=== PATIENT | female | born 1945 | race Caucasian/White ===

== ENCOUNTER 2016-10-18 08:49 | Emergency (ER) | payer OTHER ==
[~2016-10-18] VITALS: Ht 165.1 cm; Wt 65.0 kg
[~2016-10-18 08:49] MED LIST: ASPI81TA82 PO; HYZA100T4 PO
[2016-10-18 09:22] VITALS: BP 178/76; PULSE 94; RESP 20; O2SAT 97
--- NOTE | 2016-10-18 10:24 | PD ---
HPI Chief Complaint: Headache Time Seen by Provider: 10:11 Travel History International Travel<30 days: No Contact w/Intl Traveler<30days: No Traveled to known affect area: No History of Present Illness HPI This patient complains of headache. Started in the top of her neck and spread up to the head. This started last night. Took some Motrin and went to bed but still having pain today. There was no thunderclap onset. The headache has somewhat improved and does not severe at this time. She has no neurologic deficit or complaints. She felt like her face was swollen today. No fever. No head injury. She takes no blood thinners. Duration one day. Has history of uterine cancer but completed chemotherapy 7 months ago and is now in remission. PFSH Past Medical History Cancer: Yes (uterine ca ) Cardiovascular Problems: Yes (hx mitral valve regurgitation ) Diabetes: No Endocrine: No Genitourinary: No Hepatitis: No Hiatal Hernia: No Immune Disorder: No Musculoskeletal: No Neurologic: No Psychiatric: No Reproductive: Yes Respiratory: No Thyroid Disease: No Past Surgical History Abdominal Surgery: No AICD: No Body Medical Devices: l wrist plates Cardiac Surgery: No Ear Surgery: No Eye Surgery: No Genitourinary Surgery: No Gynecologic Surgery: Yes (sep 07) Joint Replacement: No Oral Surgery: No Pacemaker: No Thoracic Surgery: No Social History Alcohol Use: No Tobacco Use: No Substance Use: No Allergies-Medications (Allergen,Severity, Reaction): Coded Allergies: No Known Allergies (Verified , 10/18/16) Reported Meds & Prescriptions Reported Meds & Active Scripts Active Reported Calcium + D + K (Calcium-Vitamins D & K) 750-500-40 Mg-Unit-Mcg Tab 1 Tab PO TID Vitamin B Complex (B-Complex Vitamins) 1 Tab 1 Tab PO DAILY Hyzaar (Losartan-Hydrochlorothiazide) 50-12.5 Mg Tab 1 Tab PO DAILY Review of Systems General / Constitutional: No: Fever Eyes: No: Visual changes HENT: Positive: Headaches, Neck Pain Cardiovascular: No: Chest Pain or Discomfort Respiratory: No: Shortness of Breath Gastrointestinal: No: Abdominal Pain Genitourinary: No: Dysuria Musculoskeletal: No: Pain Skin: No Rash Neurologic: Positive: Headache, No: Weakness Psychiatric: No: Depression Endocrine: No: Polydipsia Hematologic/Lymphatic: No: Easy Bruising Physical Exam Narrative GENERAL: Well-nourished, well-developed patient in no apparent distress. SKIN: Warm and dry. HEAD: Atraumatic. Normocephalic. EYES: Pupils equal and round. No scleral icterus. No injection or drainage. ENT: No nasal bleeding or discharge. Mucous membranes pink and moist. Throat clear NECK: Trachea midline. No JVD. No midline tenderness. No objective swelling. No meningeal signs. CARDIOVASCULAR: Regular rate and rhythm. No murmur appreciated. RESPIRATORY: No accessory muscle use. Clear to auscultation. Breath sounds equal bilaterally. GASTROINTESTINAL: Abdomen soft, non-tender, nondistended. Hepatic and splenic margins not palpable. MUSCULOSKELETAL: No obvious deformities. No clubbing. No cyanosis. No edema. NEUROLOGICAL: Awake and alert. No obvious cranial nerve deficits. Motor grossly within normal limits. Normal speech. PSYCHIATRIC: Appropriate mood and affect; insight and judgment normal. Data Data Last Documented VS Vital Signs Date Time Temp Pulse Resp B/P Pulse Ox O2 Delivery O2 Flow Rate FiO2 10/18/16 11:13 97.9 82 15 154/[address] Brain W/O Iv Contrast(Rout) (10/18/16 ) [facility] Medical Decision Making Medical Screen Exam Complete: Yes Emergency Medical Condition: Yes Medical Record Reviewed: Yes Differential Diagnosis Differential diagnosis includes migraine, tension headache, cluster headache, meningitis, uterine cancer metastasis Narrative Course I have reviewed the patient's electronic medical record. Patient is neurologically intact. She has an atypical headache with history of uterine cancer so I ordered brain CT No meningeal signs Presentation not consistent with subarachnoid hemorrhage or stroke Brain CT is normal I don't see any real objective findings of anything going on here. Stable for outpatient follow-up. Diagnosis Primary Impression: Headache Qualified Code: R51 - Acute nonintractable headache, unspecified headache type Additional Instructions: The patient was advised to follow up with their physician and return if they worsen. Med/Other Pt SpecificInfo: Other Disposition: 01 DISCHARGE HOME Condition: Stable Jorge Ornelas MD Oct 18, 2016 10:24
--- NOTE | 2016-10-18 10:55 | RADRPT ---
EXAM DATE/TIME: 10/18/2016 10:35 [facility] COMPARISON: No previous studies available for comparison. INDICATIONS : Cephalgia radiating to neck. RADIATION DOSE: 56.35 CTDIvol (mGy) MEDICAL HISTORY : Cardiovascular disease. Hypertension. Uterine cancer. SURGICAL HISTORY : None. ENCOUNTER: Initial ACUITY: 1 day PAIN SCALE: 6/10 LOCATION: cranial TECHNIQUE: Multiple contiguous axial images were obtained of the head. Using automated exposure control and adj ustment of the mA and/or kV according to patient size, radiation dose was kept as low as reasonably a chievable to obtain optimal diagnostic quality images. FINDINGS: CEREBRUM: The ventricles are normal for age. No evidence of midline shift, mass lesion, hemorrhage or acute in farction. No extra-axial fluid collections are seen. POSTERIOR FOSSA: The cerebellum and brainstem are intact. The 4th ventricle is midline. The cerebellopontine angle i s unremarkable. EXTRACRANIAL: There are multiple circumscribed scalp mass is identified, mostly posterior and somewhat dense internet marketing consultant al calcification. These are presumably benign cutaneous lesions however correlation would be recommen ded. SKULL: The calvaria is intact. No evidence of skull fracture. CONCLUSION: No acute intracranial findings. Cosmo Burkett MD on October 18, 2016 at 10:51 Board Certified Radiologist. This report was verified electronically.
[2016-10-18] MEDS ORDERED: VITATAB11 PO (11:12)
[2016-10-18] MEDS ORDERED: CALC750T PO (11:12)
[2016-10-18] MEDS ORDERED: HYZA50TA2 PO (11:12)
[2016-10-18 11:13] VITALS: BP 154/70; PULSE 82; RESP 15; TEMP 97.9; O2SAT 95
[2016-10-18 12:00] VITALS: BP 141/66; PULSE 78; RESP 24; O2SAT 94
== END 2016-10-18 14:02 | disposition home or self-care (01) ==
LOC: NEPC 08:49
DX: R51 Headache (principal)
CPT/HCPCS: 70450

== ENCOUNTER 2016-10-19 07:28 | Observation (INO) | payer OTHER ==
[2016-10-19] VITALS (10 sets, daily range): BP systolic 114–171; BP diastolic 59–75; PULSE 85–102; RESP 14–20; TEMP 96–98.3; O2SAT 94–99
[~2016-10-19] VITALS: Ht 152.4 cm; Wt 65.0 kg
[~2016-10-19 07:28] MED LIST changes: -ASPI81TA82 PO; +CALC750T PO; -HYZA100T4 PO; +HYZA50TA2 PO; +VITATAB11 PO
[2016-10-19 08:10] LABS: AUTOMATED NEUTROPHIL # 7.7 TH/MM3 (1.8-7.7); BASOPHIL % 0.3 % (0.0-2.0); EOSINOPHIL # 0.1 TH/MM3 (0-0.4); EOSINOPHIL % 0.9 % (0.0-4.0); HEMATOCRIT 33.9 % (35.0-46.0); LYMPH % 27.3 % (9.0-44.0); LYMPHOCYTE # 3.3 TH/MM3 (1.0-4.8); MEAN CELL VOLUME 71.5 FL (80.0-100.0); MEAN CORPUSCULAR HEMOGLOBIN 22.8 PG (27.0-34.0); MEAN CORPUSCULAR HGB CONC 31.9 % (32.0-36.0); MONO % 7.2 % (0.0-8.0); NEUT % 64.3 % (16.0-70.0); PLATELET COUNT 277 TH/MM3 (150-450); RED BLOOD COUNT 4.74 MIL/MM3 (4.00-5.30); RED CELL DISTRIBUTION WIDTH 14.8 % (11.6-17.2)
[2016-10-19 08:16] LABS: HEMO FLAGS AUTO DIFF
[2016-10-19 08:34] LABS: POTASSIUM 3.9 MEQ/L (3.5-5.1)
[2016-10-19 09:08] LABS: OVALOCYTES 1+ (NORMAL); SCAN/DIFF AUTO DIFF CONFIRMED; TARGET CELLS 1+ (NORMAL)
--- NOTE | 2016-10-19 09:13 | RADRPT ---
EXAM DATE/TIME: 10/19/2016 09:17 [facility] COMPARISON: No previous studies available for comparison. INDICATIONS : Difficulty swallowing and neck swelling. MEDICAL HISTORY : Uterine cancer. SURGICAL HISTORY : Infusaport. ENCOUNTER: Initial ACUITY: 2 days PAIN SCORE: 7/10 LOCATION: Bilateral chest FINDINGS: [id number] is in good position. The lungs are clear. The heart and pulmonary vascularity are norm al. The portion of the bony skeleton visualized is unremarkable. CONCLUSION: Negative chest for acute disease. Donald Sherman MD FACR on October 19, 2016 at 9:11 Board Certified Radiologist. This report was verified electronically.
[2016-10-19] MEDS ORDERED: methylPREDNISolone SOD SUCC 125 MG/2 ML VIAL IV PUSH ONE (09:45)
[2016-10-19] MEDS ORDERED: diphenhydrAMINE HCL 50 MG/ML VIAL IV PUSH ONE (09:45)
--- NOTE | 2016-10-19 09:51 | PD ---
HPI Chief Complaint: Respiratory Symptoms Time Seen by Provider: 09:27 Travel History International Travel<30 days: No Contact w/Intl Traveler<30days: No Traveled to known affect area: No History of Present Illness HPI The patient is a 71-year-old female who presents to the emergency department for neck swelling and periorbital edema. The patient states her symptoms started several days ago with a sore throat and then neck swelling. The patient now complains of mild difficulty swallowing as well as swelling around the eyes bilaterally. The patient denies any swelling of the hands or feet. The patient states she was evaluated in the emergency department yesterday and had a CT the brain that was negative. She does have a history of uterine cancer and was treated by Dr. Seals, underwent chemotherapy, currently states she is in remission. She denies any history of lung metastasis or known Pancoast tumors. The patient denies any fever, chills, or sweats. She denies starting any new medications and denies any ingestion of any new foods. She denies any known history of angioedema. She does note a dry nonproductive cough secondary to the pain in the posterior aspect of her throat, but denies any significant shortness of breath. She denies any, chest pain, nausea, vomiting, or abdominal pain. PFSH Past Medical History Cancer: Yes (uterine ca ) Cardiovascular Problems: Yes (hx mitral valve regurgitation ) Diabetes: No Diminished Hearing: No Endocrine: No Genitourinary: No Hepatitis: No Hiatal Hernia: No Hypertension: Yes Immune Disorder: No Musculoskeletal: No Neurologic: No Psychiatric: No Reproductive: Yes Respiratory: No Thyroid Disease: No Influenza Vaccination: No : 2 Para: 1 Past Surgical History Abdominal Surgery: No AICD: No Body Medical Devices: l wrist plates Cardiac Surgery: No Ear Surgery: No Eye Surgery: No Genitourinary Surgery: No Gynecologic Surgery: Yes (sep 07) Hysterectomy: Yes Joint Replacement: No Oral Surgery: No Pacemaker: No Thoracic Surgery: No Other Surgery: Yes Social History Alcohol Use: No Tobacco Use: No Substance Use: No Allergies-Medications (Allergen,Severity, Reaction): Coded Allergies: No Known Allergies (Verified , 10/19/16) Reported Meds & Prescriptions Reported Meds & Active Scripts Active Reported Calcium + D + K (Calcium-Vitamins D & K) 750-500-40 Mg-Unit-Mcg Tab 1 Tab PO TID Vitamin B Complex (B-Complex Vitamins) 1 Tab 1 Tab PO DAILY Hyzaar (Losartan-Hydrochlorothiazide) 50-12.5 Mg Tab 1 Tab PO DAILY Review of Systems Except as stated in HPI: all other systems reviewed are Neg General / Constitutional: No: Fever HENT: Positive: Sore Throat, Neck Pain, Other (as noted in the history of present illness), No: Lightheadedness Cardiovascular: No: Chest Pain or Discomfort Respiratory: No: Shortness of Breath Gastrointestinal: No: Nausea, Vomiting, Abdominal Pain Genitourinary: No: Decreased Urinary Output Musculoskeletal: No: Edema Skin: No Rash, No Itching Neurologic: No: Weakness Physical Exam Narrative GENERAL: Awake, alert, pleasant 71-year-old female who appears her stated age and is in no acute respiratory distress. Patient phonates without difficulty. SKIN: Warm and dry. HEAD: Atraumatic. Normocephalic. EYES: Pupils equal and round. No scleral icterus. No injection or drainage. Mild periorbital edema. ENT: No nasal bleeding or discharge. Mucous membranes pink and moist. No visible edema of the uvula or tongue. NECK: Trachea midline. No JVD. Trachea is midline. CARDIOVASCULAR: Regular rate and rhythm. No murmur appreciated. Rate in the 90s. RESPIRATORY: No accessory muscle use. Clear to auscultation. Breath sounds equal bilaterally. GASTROINTESTINAL: Abdomen soft, non-tender, nondistended. No rebound tenderness. MUSCULOSKELETAL: No obvious deformities. No clubbing. No cyanosis. No edema. No obvious edema to the fingers or feet/toes. NEUROLOGICAL: Awake and alert. No obvious cranial nerve deficits. Motor grossly within normal limits. Normal speech. PSYCHIATRIC: Appropriate mood and affect; insight and judgment normal. Data Data Last Documented VS Vital Signs Date Time Temp Pulse Resp B/P Pulse Ox O2 Delivery O2 Flow Rate FiO2 10/19/16 11:41 93 18 141/66 95 10/19/16 09:39 Room Air 10/19/16 07:34 97.4 Orders Complete Blood Count With Diff (10/19/16 07:38) Basic Metabolic Panel (Bmp) (10/19/16 07:38) Chest, Pa & Lat (10/19/16 07:38) Iv Access Insert/Monitor (10/19/16 07:38) Ecg Monitoring (10/19/16 07:38) Oxygen Administration (10/19/16 07:38) Oximetry (10/19/16 07:38) Electrocardiogram (10/19/16 07:38) Urinalysis - C+S If Indicated (10/19/16 09:40) Ct Soft Tiss Neck W Iv Cont (10/19/16 ) Methylprednisolone So Succ Inj (Solumedr (10/19/16 09:45) Diphenhydramine Inj (Benadryl Inj) (10/19/16 09:45) Iohexol 350 Inj (Omnipaque 350 Inj) (10/19/16 10:42) Admit Order (Ed Use Only) (10/19/16 12:16) Labs Laboratory Tests Test 10/19/16 10/19/16 07:51 10:25 White Blood Count 12.0 TH/MM3 Red Blood Count 4.74 MIL/MM3 Hemoglobin 10.8 GM/DL Hematocrit 33.9 % Mean Corpuscular Volume 71.5 FL Mean Corpuscular Hemoglobin 22.8 PG Mean Corpuscular Hemoglobin 31.9 % Concent Red Cell Distribution Width 14.8 % Platelet Count 277 TH/MM3 Mean Platelet Volume 7.8 FL Neutrophils (%) (Auto) 64.3 % Lymphocytes (%) (Auto) 27.3 % Monocytes (%) (Auto) 7.2 % Eosinophils (%) (Auto) 0.9 % Basophils (%) (Auto) 0.3 % Neutrophils # (Auto) 7.7 TH/MM3 Lymphocytes # (Auto) 3.3 TH/MM3 Monocytes # (Auto) 0.9 TH/MM3 Eosinophils # (Auto) 0.1 TH/MM3 Basophils # (Auto) 0.0 TH/MM3 CBC Comment AUTO DIFF Differential Comment AUTO DIFF CONFIRMED Target Cells 1+ Ovalocytes 1+ Sodium Level 140 MEQ/L Potassium Level 3.9 MEQ/L Chloride Level 105 MEQ/L Carbon Dioxide Level 26.0 MEQ/L Anion Gap 9 MEQ/L Blood Urea Nitrogen 14 MG/DL Creatinine 0.73 MG/DL Estimat Glomerular Filtration 79 ML/MIN Rate Random Glucose 156 MG/DL Calcium Level 8.6 MG/DL Urine Color YELLOW Urine Turbidity CLEAR Urine pH 5.5 Urine Specific [place] 1.020 Urine Protein NEG mg/dL Urine Glucose (UA) NEG mg/dL Urine Ketones NEG mg/dL Urine Occult Blood NEG Urine Nitrite NEG Urine Bilirubin NEG Urine Urobilinogen LESS THAN 2.0 MG/DL Urine Leukocyte Esterase SMALL Urine RBC LESS THAN 1 /hpf Urine WBC 3 /hpf Urine Squamous Epithelial <1 /hpf Cells Urine Mucus FEW /lpf Microscopic Urinalysis Comment CULT NOT INDICATED MDM Medical Decision Making Medical Screen Exam Complete: Yes Emergency Medical Condition: Yes Medical Record Reviewed: Yes Interpretation(s) EKG reveals normal sinus rhythm with a rate in 95. Nonspecific T wave changes. CT soft tissue neck with contrast reveals nonspecific edema in the low neck and supraclavicular regions. No suspicious focal findings. The upper airway is symmetric and patent. The visualized upper mediastinum is grossly unremarkable. Laboratory Tests Test 10/19/16 10/19/16 07:51 10:25 White Blood Count 12.0 TH/MM3 Red Blood Count 4.74 MIL/MM3 Hemoglobin 10.8 GM/DL Hematocrit 33.9 % Mean Corpuscular Volume 71.5 FL Mean Corpuscular Hemoglobin 22.8 PG Mean Corpuscular Hemoglobin 31.9 % Concent Red Cell Distribution Width 14.8 % Platelet Count 277 TH/MM3 Mean Platelet Volume 7.8 FL Neutrophils (%) (Auto) 64.3 % Lymphocytes (%) (Auto) 27.3 % Monocytes (%) (Auto) 7.2 % Eosinophils (%) (Auto) 0.9 % Basophils (%) (Auto) 0.3 % Neutrophils # (Auto) 7.7 TH/MM3 Lymphocytes # (Auto) 3.3 TH/MM3 Monocytes # (Auto) 0.9 TH/MM3 Eosinophils # (Auto) 0.1 TH/MM3 Basophils # (Auto) 0.0 TH/MM3 CBC Comment AUTO DIFF Differential Comment AUTO DIFF CONFIRMED Target Cells 1+ Ovalocytes 1+ Sodium Level 140 MEQ/L Potassium Level 3.9 MEQ/L Chloride Level 105 MEQ/L Carbon Dioxide Level 26.0 MEQ/L Anion Gap 9 MEQ/L Blood Urea Nitrogen 14 MG/DL Creatinine 0.73 MG/DL Estimat Glomerular Filtration 79 ML/MIN Rate Random Glucose 156 MG/DL Calcium Level 8.6 MG/DL Urine Color YELLOW Urine Turbidity CLEAR Urine pH 5.5 Urine Specific [place] 1.020 Urine Protein NEG mg/dL Urine Glucose (UA) NEG mg/dL Urine Ketones NEG mg/dL Urine Occult Blood NEG Urine Nitrite NEG Urine Bilirubin NEG Urine Urobilinogen LESS THAN 2.0 MG/DL Urine Leukocyte Esterase SMALL Urine RBC LESS THAN 1 /hpf Urine WBC 3 /hpf Urine Squamous Epithelial <1 /hpf Cells Urine Mucus FEW /lpf Microscopic Urinalysis Comment CULT NOT INDICATED Differential Diagnosis Differential diagnosis includes nephritic syndrome, nephrotic syndrome, Pancoast tumor, angioedema, retropharyngeal abscess, allergic reaction, viral syndrome. Narrative Course IV was established, labs are drawn and sent, and the patient was placed on cardiac telemetry monitoring and continuous pulse oximetry monitoring. Chest x- ray was obtained. EKG was ordered and interpreted. The patient has periorbital edema and complaints of throat discomfort with pain with swallowing , family states that the neck appear swollen bilaterally. Etiology could be systemic such as nephritic nephrotic syndrome versus allergic reaction/ angioedema versus neck mass versus Pancoast tumor. Chest x-ray does not reveal a Pancoast tumor. Patient's creatinine is unremarkable, UA was sent to evaluate for proteinuria. Therefore, CT soft tissue of the neck with IV contrast was ordered. The patient was administered Solu-Medrol 125 mg intravenously and Benadryl [address] of the soft tissue neck reveals nonspecific edema in the low neck and supraclavicular regions. The patient is able to phonate, however, complains of pain with swallowing. Unsure if patient possibly has angioedema versus nonspecific edema in the low neck and supraclavicular regions. As patient does have pain with swallowing, patient may benefit from direct visualization by ENT. Therefore, patient will be 23 hour observation for IV steroids and ENT consultation. The patient has [employer], therefore[facility]. Physician Communication Physician Communication [facility] hour [facility]. I discussed the patient with Dr. Gaitan who agrees with 23 hour observation. Diagnosis Primary Impression: Edema Qualified Code: R60.0 - Localized edema Admitting Information Admitting Physician Requests: Observation Condition: Stable Robert Gonzalez MD Oct 19, 2016 09:51
[2016-10-19] MEDS ORDERED: IOHEXOL 350 MG/ML 10 ML VIAL (for RAD DIAG) IV ONE (10:42)
[2016-10-19 11:13] LABS: BLOOD, URINE NEG (NEG); COMMENT (UR) CULT NOT INDICATED; CULTURE IF INDICATED CULT NOT INDICATED; GLUCOSE,URINE NEG (NEG); KETONE, URINE NEG (NEG); MUCUS URINE FEW /lpf (OCC); NITRITE,URINE NEG (NEG); PH, URINE 5.5 (5.0-8.5); SQUAMOUS EPITHELIAL CELL URINE <1 /hpf (0-5); URINE COLOR YELLOW (YELLW/STRAW)
--- NOTE | 2016-10-19 11:27 | RADRPT ---
EXAM DATE/TIME: 10/19/2016 10:37 [facility] COMPARISON: No previous studies available for comparison. INDICATIONS : Difficulty swallowing. Swollen neck. Periorbital edema. IV CONTRAST: 75 cc Omnipaque 350 (iohexol) IV RADIATION DOSE: 18.19 CTDIvol (mGy) MEDICAL HISTORY : Cardiovascular disease. Cardiovascular disease Hypertension. SURGICAL HISTORY : None. ENCOUNTER: Initial ACUITY: 4 - 6 days PAIN SCALE: 5/10 LOCATION: Bilateral neck TECHNIQUE: Volumetric scanning of the neck was performed. Using automated exposure control and adjustment of th e mA and/or kV according to patient size, radiation dose was kept as low as reasonably achievable to obtain optimal diagnostic quality images. FINDINGS: There are small lymph nodes seen throughout the neck, none pathologic by CT size criteria. There is m ild nonspecific edema in these subcutaneous tissues of the low posterior neck and supraclavicular reg ions bilaterally. There is no evidence of focal mass or collection. The visualized orbitofacial structures are focally unremarkable. The upper airway is symmetric and patent. The visualized upper mediastinum is grossly unremarkable. Lung apices are clear. CONCLUSION: Nonspecific edema in the low neck and supraclavicular regions. No suspicious focal findings. Cosmo Burkett MD on October 19, 2016 at 11:19 Board Certified Radiologist. This report was verified electronically.
--- NOTE | 2016-10-19 12:26 | EKG ---
Date Performed: 10/19/2016 Time Performed: 07:44:41 PTAGE: 71 years EKG: Sinus rhythm NONSPECIFIC T-WAVE ABNORMALITY BORDERLINE ECG PREVIOUS TRACING : 09/20/2007 12.50 DOCTOR: Yair Cotto Interpretating Date/Time 10/19/2016 12:22:04
[2016-10-19] MEDS ORDERED: MORPHINE SULFATE 4 MG/ML INJ IV PRN ×2 (12:30)
[2016-10-19] MEDS ORDERED: BISACODYL 10 MG SUPP PR PRN (12:30)
[2016-10-19] MEDS ORDERED: ACETAMINOPHEN 325 MG TAB PO PRN (12:30)
[2016-10-19] MEDS ORDERED: SODIUM CHLORIDE 0.9% FLUSH 5 ML FLUSH FLUSH PRN (12:30)
[2016-10-19] MEDS ORDERED: NALOXONE HCL 0.4 MG/ML AMP IV PRN (12:30)
[2016-10-19] MEDS ORDERED: MAGNESIUM HYDROXIDE SUSP 30 ML CUP PO PRN (12:30)
[2016-10-19] MEDS: DOCUSATE SODIUM 100 MG CAP PO SCH ×2 (12:50→21:16)
[2016-10-19] MEDS: HEPARIN SODIUM - SQ 10,000 UNITS/ML VIAL SQ SCH ×2 (12:53→21:16)
[2016-10-19] MEDS: SODIUM CHLOR 0.9% 1000 ML INJ 1,000 ML IV SCH ×2 (12:54→23:00)
[2016-10-19] MEDS ORDERED: ONDANSETRON HCL 4 MG/2 ML VIAL IV PUSH ONE (13:00)
[2016-10-19] MEDS ORDERED: ENALAPRILAT 1.25 MG/ML VIAL IV PUSH PRN (18:45)
--- NOTE | 2016-10-19 19:22 | RADRPT ---
EXAM DATE/TIME: 10/19/2016 18:44 [facility] COMPARISON: No previous studies available for comparison. INDICATIONS : MEDICAL HISTORY : Hypertension. History of mitral valve regurgitation. Uterine cancer. SURGICAL HISTORY : Hysterectomy. Left wrist repair with plates. ENCOUNTER: Initial ACUITY: 1 day PAIN SCORE: 0/10 LOCATION: Bilateral flank MEASUREMENTS: RIGHT KIDNEY: 10.1 x 4.9 x 3.7 cm LEFT KIDNEY: 10.1 x 4.7 x 4.8 cm FINDINGS: RIGHT KIDNEY: Renal cortex is normal in thickness and echotexture. No hydronephrosis, stone, or mass. LEFT KIDNEY: Renal cortex is normal in thickness and echotexture. No hydronephrosis, stone, or mass. BLADDER: Within normal limits given the degree of distension. CONCLUSION: Normal renal sonogram. Ryan Belle MD on October 19, 2016 at 19:20 Board Certified Radiologist. This report was verified electronically.
--- NOTE | 2016-10-19 19:45 | HHI.HP ---
[facility] Cammie Pride MD Admission Diagnosis neck edema rule out angioedema Diagnoses: Chief Complaint: Neck facial and periorbital swelling Travel History International Travel<30 Days: No Contact w/Intl Traveler <30 Da: No Traveled to Known Affected Are: No History of Present Illness 71 years old female with history of uterine cancer and hypertension who underwent chemotherapy followed up by Dr. Delarosa. Came to the ED complaining of neck swelling and periorbital edema. Patient stated her symptoms initially started 2 nights ago with neck pain which become headache she took some Motrin and try to sleep it off but it didn't help, the headache was more of a tension type like along with nauseous, clammy, cold sweats, and headache. Patient woke up today with a swollen neck periorbital edema, her daughter who was at the bedside told me this is not her baseline and usually her neck is then, the daughter said patient had a blue lips this morning. In ED CT of the head was negative yesterday, patient was sent home, but she came back again today, neck CT has been done which showed only soft tissue. Currently patient denied chest pain short of breath, she feels hungry, no abdominal pain diarrhea or constipation, no orthopnea or PND or leg swelling. Review of Systems Other All 10 systems reviewed and was positive for what is mentioned in history of present illness otherwise negative Past Family Social History Past Medical History Hypertension Uterine cancer Allergies: Coded Allergies: No Known Allergies (Verified , 10/19/16) Family History Reviewed noncontributory Social History No alcohol or substance abuse, she drinks alcohol occasionally Physical Exam Vital Signs Vital Signs Date Time Temp Pulse Resp B/P Pulse Ox O2 Delivery O2 Flow Rate FiO2 10/19/16 18:24 95 10/19/16 16:47 96.0 95 16 125/59 95 10/19/16 16:18 92 14 129/64 94 Room Air 10/19/16 12:55 85 14 114/59 95 Room Air 10/19/16 11:41 93 18 141/66 95 10/19/16 09:39 18 99 Room Air 10/19/16 07:34 97.4 102 18 171/75 96 Room Air Physical Exam - GENERAL: This is a well-nourished, well-developed patient, in no apparent distress. SKIN: No rashes, ecchymoses or lesions. Cool and dry. HEAD: Atraumatic. Normocephalic. No temporal or scalp tenderness. EYES: Pupils equal round and reactive. Extraocular motions intact. No scleral icterus. No injection or drainage. Positive periorbital edema ENT: Nose without bleeding, purulent drainage or septal hematoma. Throat without erythema, tonsillar hypertrophy or exudate. Uvula midline. Airway patent. NECK: Trachea midline. No JVD or lymphadenopathy appreciated. Minimally tender to palpation, increased girth of the neck CARDIOVASCULAR: Regular rate and rhythm without murmurs, gallops, or rubs. RESPIRATORY: Clear to auscultation. Breath sounds equal bilaterally. No wheezes , rales, or rhonchi. GASTROINTESTINAL: Abdomen soft, non-tender, nondistended. No hepato-splenomegaly , or palpable masses. No guarding. MUSCULOSKELETAL: Extremities without clubbing, cyanosis, or edema. No joint tenderness, effusion, or edema noted. No calf tenderness. Negative Homans sign bilaterally. NEUROLOGICAL: Awake and alert. Cranial nerves II through XII intact. Motor and sensory grossly within normal limits. Five out of 5 muscle strength in all muscle groups. Normal speech. Laboratory Laboratory Tests Test 10/19/16 10/19/16 07:51 10:25 White Blood Count 12.0 Red Blood Count 4.74 Hemoglobin 10.8 Hematocrit 33.9 Mean Corpuscular Volume 71.5 Mean Corpuscular Hemoglobin 22.8 Mean Corpuscular Hemoglobin 31.9 Concent Red Cell Distribution Width 14.8 Platelet Count 277 Mean Platelet Volume 7.8 Neutrophils (%) (Auto) 64.3 Lymphocytes (%) (Auto) 27.3 Monocytes (%) (Auto) 7.2 Eosinophils (%) (Auto) 0.9 Basophils (%) (Auto) 0.3 Neutrophils # (Auto) 7.7 Lymphocytes # (Auto) 3.3 Monocytes # (Auto) 0.9 Eosinophils # (Auto) 0.1 Basophils # (Auto) 0.0 CBC Comment AUTO DIFF Differential Comment AUTO DIFF CONFIRMED Target Cells 1+ Ovalocytes 1+ Sodium Level 140 Potassium Level 3.9 Chloride Level 105 Carbon Dioxide Level 26.0 Anion Gap 9 Blood Urea Nitrogen 14 Creatinine 0.73 Estimat Glomerular Filtration 79 Rate Random Glucose 156 Calcium Level 8.6 Thyroid Stimulating Hormone 3.420 3rd Gen Urine Color YELLOW Urine Turbidity CLEAR Urine pH 5.5 Urine Specific Barry 1.020 Urine Protein NEG Urine Glucose (UA) NEG Urine Ketones NEG Urine Occult Blood NEG Urine Nitrite NEG Urine Bilirubin NEG Urine Urobilinogen LESS THAN 2.0 Urine Leukocyte Esterase SMALL Urine RBC LESS THAN 1 Urine WBC 3 Urine Squamous Epithelial <1 Cells Urine Mucus FEW Microscopic Urinalysis Comment CULT NOT INDICATED Result Diagram: 10/19/16 0751 10/19/16 0751 Imaging Last Impressions Chest X-Ray 10/19/16 0738 Signed Impressions: Service Date/Time: Wednesday, October 19, 2016 09:17 - CONCLUSION: Negative chest for acute disease. Donald Sherman MD FACR Renal Ultrasound 10/19/16 0000 Signed Impressions: Service Date/Time: Wednesday, October 19, 2016 18:44 - CONCLUSION: Normal renal sonogram. Ryan Belle MD Neck CT 10/19/16 0000 Signed Impressions: Service Date/Time: Wednesday, October 19, 2016 10:37 - CONCLUSION: Nonspecific edema in the low neck and supraclavicular regions. No suspicious focal findings. Cosmo Burkett MD Assessment and Plan Assessment and Plan 71 years old female with history of uterine cancer and hypertension admitted with Next swelling with periorbital edema rule out SVC syndrome versus other etiology History of uterine cancer status post chemotherapy Hypertension DVT prophylaxis Plan: Admit for observation Personally reviewed head CT and neck CT Ordered chest CT to rule out intrathoracic etiology ENT consulted Patient was given Solu-Medrol in ED will continue, to help with the swelling Pain management with morphine sulfate, antiepileptic Keep nothing by mouth until seen by ENT Check TSH Consult Dr. Delarosa Check renal ultrasound Resume losartan and hydrochlorothiazide from a direct Monitor CBC BMP and vital Discussed Condition With Patient and her family Denny Gaitan MD Oct 19, 2016 19:45
[2016-10-19] MEDS: methylPREDNISolone SOD SUCC 40 MG/1 ML VIAL IV PUSH SCH (19:56)
--- NOTE | 2016-10-19 20:55 | MB ---
cc: VIN TINSLEY M.D., LYLE DATE OF CONSULTATION: 10/19/2016 REQUESTING PHYSICIAN: Dr. Robert Gonzalez REASON FOR CONSULTATION: Sore throat. HISTORY OF PRESENT ILLNESS: Adelaida Elmore is a 71 year-old woman who appears to be in good health. She presented to the emergency room on two consecutive days complaining of headache, sore throat and then swelling in her neck and face. On her second visit she was admitted for observation. She states she has been given steroid therapy and she feels like she is improving since her admission. Initially her neck was tight but she states that it improving. She has had no airway compromise at any point. She notes some mild discomfort with swallowing but that is also improving. She states she is hungry and she requests something to eat and drink. She feels dry in her mouth and throat. No change of her voice. She is not a cigarette smoker. PAST MEDICAL HISTORY: Uterine cancer treated with chemotherapy. No diabetes. No immune compromise. No hepatitis. PAST SURGICAL HISTORY: Hysterectomy. SOCIAL HISTORY: She lives with her family. No tobacco, alcohol or drug use. ALLERGIES: None. MEDICATIONS: Prior to admission, losartan, calcium and vitamins. PHYSICAL EXAMINATION: She is alert, cooperative in no distress. VITAL SIGNS: Temperature 97.4, respiratory rate 18, pulse 90. Blood pressure 141/66. She is 90% O2 saturation on room air. Head: Normocephalic, atraumatic. Face is normal. There is no significant periorbital edema. Oral cavity and oral pharynx, teeth in good condition. Tongue and mandible are normal. Tonsils are present. No inflammation or enlargement. No sign of mucosal lesions involving the floor of mouth, base of tongue, oropharynx or soft palate. Neck: No nodes or masses. There is no tenderness. Larynx, trachea midline. There is no significant edema of the neck bilaterally. Flexible fiberoptic laryngoscopy shows patent nasal airways, no sign of purulence, polyps or rhinorrhea. Nasopharynx is normal. Hypopharynx and larynx show normal color, very mild dryness of the mucosa, vocal cord mobility is normal. There is no mucosal lesions of the vocal cords. No granulomas or neoplastic changes, esophageal entrance is normal. ASSESSMENT Probable allergic reaction, now resolving with the steroid therapy. PLAN: Discussed these findings with the patient and family. She appears to be in excellent condition. I can see no need for further intervention involving her ears, nose and throat. Given that she is n.p.o. awaiting evaluation for the nurses, will allow her to have food and drink. I will see her back as an outpatient as needed. MD KATERINE Lee/CORDELIA /7:53 PM /8:28 PM
[2016-10-19] MEDS: SODIUM CHLORIDE 0.9% FLUSH 5 ML FLUSH FLUSH SCH (21:16)
[2016-10-20] VITALS (7 sets, daily range): BP systolic 135–154; BP diastolic 63–83; PULSE 89–104; RESP 16–20; TEMP 96–97.7; O2SAT 93–95
[2016-10-20] MEDS: methylPREDNISolone SOD SUCC 40 MG/1 ML VIAL IV PUSH SCH ×5 (00:18→23:24)
[2016-10-20] MEDS: HEPARIN SODIUM - SQ 10,000 UNITS/ML VIAL SQ SCH ×3 (05:40→21:00)
[2016-10-20] MEDS: SODIUM CHLOR 0.9% 1000 ML INJ 1,000 ML IV SCH (05:41)
[2016-10-20 07:53] LABS: AUTOMATED NEUTROPHIL # 16.9 TH/MM3 (1.8-7.7); HEMATOCRIT 33.4 % (35.0-46.0); LYMPH % 10.1 % (9.0-44.0); LYMPHOCYTE # 1.9 TH/MM3 (1.0-4.8); MEAN CELL VOLUME 71.7 FL (80.0-100.0); MONO % 2.4 % (0.0-8.0); NEUT % 87.5 % (16.0-70.0); PLATELET COUNT 260 TH/MM3 (150-450); RED BLOOD COUNT 4.67 MIL/MM3 (4.00-5.30); RED CELL DISTRIBUTION WIDTH 14.8 % (11.6-17.2); WHITE BLOOD COUNT 19.3 TH/MM3 (4.0-11.0)
[2016-10-20 08:09] LABS: HEMO FLAGS AUTO DIFF
[2016-10-20 08:11] LABS: BICARBONATE 22.5 MEQ/L (21.0-32.0); POTASSIUM 3.7 MEQ/L (3.5-5.1)
[2016-10-20] MEDS: LOSARTAN 50 MG TAB PO SCH (08:53)
[2016-10-20] MEDS: HYDROCHLOROTHIAZIDE 12.5 MG CAP PO SCH (08:54)
[2016-10-20] MEDS: DOCUSATE SODIUM 100 MG CAP PO SCH ×2 (08:54→21:00)
[2016-10-20] MEDS: SODIUM CHLORIDE 0.9% FLUSH 5 ML FLUSH FLUSH SCH ×2 (08:54→21:35)
[2016-10-20 09:07] LABS: SCAN/DIFF AUTO DIFF CONFIRMED
[2016-10-20] MEDS ORDERED: ENOXAPARIN SODIUM 40 MG/0.4 ML SYRINGE SQ SCH (09:45)
[2016-10-20] MEDS ORDERED: DEXTROSE 50% IN WATER 50 ML VIAL(D50) IV PUSH PRN (09:45)
[2016-10-20] MEDS ORDERED: GLUCAGON 1 MG/ML VIAL OTHER PRN (09:45)
[2016-10-20] MEDS: INSULIN NovoLIN REGULAR SUPPLEMENTAL SCALE SQ SCH ×3 (11:00→21:22)
--- NOTE | 2016-10-20 11:01 | HHI.PR ---
Subjective Remarks Patient thing swelling is slightly better, however she mat making machine tender Seen by ENT, cleared to start diet gradually Awaiting Dr. Delarosa consultation and possible CT chest Objective Vitals Vital Signs Date Time Temp Pulse Resp B/P Pulse Ox O2 Delivery O2 Flow Rate FiO2 10/20/16 08:40 97.7 91 16 144/67 94 10/20/16 04:21 97.6 89 20 144/83 95 10/19/16 23:51 98.3 88 20 149/68 95 10/19/16 22:56 89 10/19/16 20:38 97.6 87 20 142/73 95 10/19/16 18:24 95 10/19/16 16:47 96.0 95 16 125/59 95 10/19/16 16:18 92 14 129/64 94 Room Air 10/19/16 12:55 85 14 114/59 95 Room Air 10/19/16 11:41 93 18 141/66 95 Result Diagram: 10/20/16 0715 10/20/16 0715 Objective Remarks - GENERAL: This is a well-nourished, well-developed patient, in no apparent distress. SKIN: No rashes, ecchymoses or lesions. Cool and dry. HEAD: Atraumatic. Normocephalic. No temporal or scalp tenderness. EYES: Pupils equal round and reactive. Extraocular motions intact. No scleral icterus. No injection or drainage. Positive periorbital edema ENT: Nose without bleeding, purulent drainage or septal hematoma. Throat without erythema, tonsillar hypertrophy or exudate. Uvula midline. Airway patent. NECK: Trachea midline. No JVD or lymphadenopathy appreciated. Minimally tender to palpation, increased girth of the neck CARDIOVASCULAR: Regular rate and rhythm without murmurs, gallops, or rubs. RESPIRATORY: Clear to auscultation. Breath sounds equal bilaterally. No wheezes , rales, or rhonchi. GASTROINTESTINAL: Abdomen soft, non-tender, nondistended. No hepato-splenomegaly , or palpable masses. No guarding. MUSCULOSKELETAL: Extremities without clubbing, cyanosis, or edema. No joint tenderness, effusion, or edema noted. No calf tenderness. Negative Homans sign bilaterally. NEUROLOGICAL: Awake and alert. Cranial nerves II through XII intact. Motor and sensory grossly within normal limits. Five out of 5 muscle strength in all muscle groups. Normal speech. A/P Assessment and Plan 71 years old female with history of uterine cancer and hypertension admitted with neck swelling with periorbital edema rule out SVC syndrome versus other etiology History of uterine cancer status post chemotherapy Worsening leukocytosis mostly stress-induced Hypertension DVT prophylaxis Plan: Personally reviewed head CT and neck CT Awaiting chest CT to rule out intrathoracic etiology Appreciate ENT consult, continue Solu-Medrol, will follow as an outpatient Pain management with morphine sulfate, antiepileptic Keep nothing by mouth until seen by ENT Normal TSH Awaiting Consult Dr. Delarosa Check renal ultrasound On losartan and hydrochlorothiazide Monitor CBC BMP and vital addendum 10/20/16 @1900 received a call from dr Victoria the radiologist notified me about the thrombus in SVC , he requested to check with the oncologyst if ok to remove the port as it can be the reason of the thrombus , I did call dr Seals and d/w the new finding with him , he agree to remove the port , we notified dr Angelica Victoria , will start anticoag , removing port to be scheduled by Denny Hodges MD Oct 20, 2016 11:01
[2016-10-20] MEDS ORDERED: DIATRIZOATE MEGLUM/DIATRIZOATE SOD 9 ML CUP PO ONE (13:45)
--- NOTE | 2016-10-20 16:28 | MB ---
cc: VIN TINSLEY M.D., KELLY L. MD NEMOU,DENNY SOSA DATE OF CONSULTATION: 10/20/2016. PHYSICIAN REQUESTING CONSULTATION: Dr. Denny Gaitan. REASON FOR CONSULTATION: History of uterine cancer. Evaluate. REASON FOR ADMISSION: Periorbital facial, neck and upper body swelling and erythema. HISTORY OF PRESENT ILLNESS: A 71-year-old female reports two to three days of notable swelling around her eyes, face and her neck, mostly on the left side of her neck greater than the right side of her neck. Also, redness to her skin of her face, neck, chest, upper back and upper arms. She does not have any shortness of breath, any chest pain or palpitations. She does report that at times when she changes position from supine or seated to standing, she will sometimes get lightheaded and she reports that when she changes position or early upon presentation to the emergency room that she states that she passed out. No further details provided, although this was resolved shortly thereafter with no injury. She is seen now and reports that she is feeling better. Apparently some steroids have been started. A thorough workup has been initiated and is ongoing including chest x-ray which shows no acute process and neck CT scan which shows nonspecific edema in the low neck and supraclavicular region, no suspicious focal findings. A renal ultrasound was normal. She has a CT scan of the chest scheduled and pending. She reports that she is feeling somewhat better since when she first presented to the emergency room. 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 She underwent six cycles of Taxol and carboplatin chemotherapy. We saw her in March shortly after she finished treatment where she had no evidence of disease and had tolerated treatment well. She was seen again in June of 2016, no evidence of disease. CA-125 was normal. Exam was nonfocal and she would be scheduled to see us again soon in our office. She is seen now in consultation for further evaluation and recommendations regarding these findings. PAST MEDICAL HISTORY: 1. Uterine papillary serous carcinoma. 2. History of anemia, not otherwise specified. 3. Hypertension. 4. Mitral valve regurgitation PAST SURGICAL HISTORY: 1. Robotic-assisted laparoscopic hysterectomy, bilateral salpingo-oophorectomy and staging. 2. She had a colonoscopy in 2014, reportedly without obvious problem. FAMILY HISTORY: Family history notable for hypertension, stroke in her father. Mother had diabetes and hypertension. SOCIAL HISTORY: She is and has a very supportive family. Her and daughter are present in the emergency room. C[employer]OL[employer]ATION HISTORY: Three pregnancies, one vaginal delivery. Menopause age 55. MEDICATIONS: Are as listed and reviewed in the chart. 1. Her only prescription medicine reported is Hyzaar 50/12.5 once daily. 2. Vitamins and mineral supplements. 3. She does report recently starting a new calcium derivative from an algae-based product. Her symptoms started shortly after taking this supplement. Whether it is related at all is uncertain. ALLERGIES: SHE HAS NO KNOWN MEDICATION ALLERGIES. ADDITIONAL OBJECTIVE DATA / LABS: Hemoglobin and hematocrit on admission 10.8 and 33.9. White count 12. Platelet count 277,000. Electrolytes essentially normal. BUN and creatinine 17 and 0.67. Glucose elevated at 156. TSH 3.42. PHYSICAL EXAMINATION: VITAL SIGNS: She is afebrile. Pulse has been 87 to 91. Respirations 16 to 20. Blood pressure 135-149/63-83. O2 saturation is greater than or equal to 94%. GENERAL: She is alert and oriented times three and in no acute distress in good spirits. She has diffuse symmetrical erythema on her face, neck, chest, back, proximal upper extremities, faces and is not present on her lower body. There is diffuse edema periorbital facial, neck, trunk and upper extremities. Also not present in lower body. The left side of the neck is slightly more prominent than the right. There is no skin breakdown. No ulceration. No rash. No petechial hemorrhage. Nontender. NECK: No overt adenopathy or carotid bruits. Pupils are equal, round and reactive to light. No obvious injuries to suggest trauma. BACK: Nontender. No spinal point tenderness or costovertebral angle tenderness. CARDIOVASCULAR: Regular rate and rhythm. LUNGS: Clear to auscultation bilaterally. ABDOMEN: Abdomen soft and nondistended and nontender. EXTREMITIES: Some peripheral neuropathy sensory, chronic, no palpable cords. Negative Homans. Neurovascularly intact. PELVIC: Deferred given recent exam and suboptimal settings combined with the absence of any [employer] symptoms. Time was spent in discussion with her and her family members reviewing the findings in her case to-date. I am sorry she is feeling poorly. The reason for her feeling poorly remains unclear; it has some of the characteristics of an allergic type reaction either from something ingested or contact irritation to her knowledge. Other than changing her recent vitamin supplement, there has been no change in her diet, household products, no change in her soaps, fabric softeners, laundry detergents, use of bleach. No new pets or other items that she could attribute to being different in her routine. I explained that from an oncology standpoint, the reason for consultation is to render an opinion and get an updated evaluation from a cancer standpoint. At this point in our ongoing surveillance, we would recommend consideration of imaging as part of cancer surveillance. I agree with the evaluation that has been done thus far and the CT scan of the chest and it may be prudent if possible, while the scan of the chest is being done to move forward with a CT scan of the abdomen and pelvis and have a thorough evaluation and updated look given her history of an aggressive cancer (uterine papillary serous carcinoma). I would also recommend an updated CA-125. It is noted, however, this may be falsely elevated if she is having some type of allergic reaction and the inflammation associated with that may falsely elevate the CA-125. Certainly the CT scan would be more objective. We will see her back in our office at some point in the near future for followup including Pap smear and pelvic exam and she is to contact our office to schedule that followup. We will review the CT scan, but from an oncology standpoint, no further recommendations at this time. ASSESSMENT: 1. History of stage IIB uterine papillary serous carcinoma, no overt evidence of disease on physical exam. 2. New swelling and erythema of uncertain etiology, ongoing evaluation. 3. Extensive discussion. PLAN: 1. Agree with the ongoing evaluation and agree that CT scan of the chest would be helpful to evaluate any possible underlying contribution to her upper body swelling and erythema, also to evaluate for the possibility of recurrent disease. 2. Recommend adding CT scan of the abdomen and pelvis to evaluate for any evidence of recurrent disease. 3. To follow up with me on the outpatient basis as well for updated pelvic exam and Pap smear. 4. Obtain CA-125 now. Thank you for the consultation. We will follow along in her care. MD NESS Olivarez/KARRIE /1:54 PM /4:03 PM
[2016-10-20] MEDS ORDERED: IOHEXOL 350 MG/ML 10 ML VIAL (for RAD DIAG) IV ONE (16:43)
--- NOTE | 2016-10-20 17:27 | RADRPT ---
EXAM DATE/TIME: 10/20/2016 16:43 [facility] COMPARISON: No previous studies available for comparison. INDICATIONS : Evaluate for superior vena cava obstruction syndrome. Neck edema. IV CONTRAST: 90 cc Omnipaque 350 (iohexol) IV ; Cumulative dose for multiple exams. RADIATION DOSE: 15.50 CTDIvol (mGy) ; Combined studies - Thorax/Abdomen/Pelvis MEDICAL HISTORY : Cardiovascular disease. Hypertension. Uterine carcinoma SURGICAL HISTORY : None. ENCOUNTER: Initial ACUITY: 3 days PAIN SCALE: 6/10 LOCATION: Bilateral chest neck TECHNIQUE: Volumetric scanning of the chest was performed. Using automated exposure control and adjustment of t he mA and/or kV according to patient size, radiation dose was kept as low as reasonably achievable to obtain optimal diagnostic quality images. FINDINGS: LUNGS: There is no consolidation or pneumothorax. No concerning pulmonary nodule is visualized. PLEURA: Small bilateral pleural effusions MEDIASTINUM: There is a low density filling defect within the superior vena cava extending down to the atriocaval junction level, presumably representing supervening caval thrombosis. There is flow through small col lateral venous channels in the neck and upper mediastinum and substantial increased opacification of the azygos system. No evidence of mass or mediastinal lymphadenopathy. AXILLAE: Mild nonspecific chest wall and axillary edema and small engorged lymph nodes which are nonspecific i n this setting. SKELETAL: Within normal limits for patient age. 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 Small bilateral pleural effusions. Cosmo Burkett MD on October 20, 2016 at 17:18 Board Certified Radiologist. This report was verified electronically.
--- NOTE | 2016-10-20 17:30 | RADRPT ---
EXAM DATE/TIME: 10/20/2016 16:43 [facility] COMPARISON: No previous studies available for comparison. INDICATIONS : Evaluate for metastatic disease. IV CONTRAST: 90 cc Omnipaque 350 (iohexol) IV ; Cumulative dose for multiple exams. ORAL CONTRAST: Prescribed oral contrast ingested. RADIATION DOSE: 15.50 CTDIvol (mGy) ; Combined studies - Thorax/Abdomen/Pelvis MEDICAL HISTORY : Cardiovascular disease. Hypertension. Carcinoma, not otherwise specified. SURGICAL HISTORY : None. ENCOUNTER: Initial ACUITY: 3 days PAIN SCALE: 6/10 LOCATION: Bilateral Abdomen TECHNIQUE: Volumetric scanning of the abdomen and pelvis was performed. Using automated exposure control and ad justment of the mA and/or kV according to patient size, radiation dose was kept as low as reasonably achievable to obtain optimal diagnostic quality images. FINDINGS: LOWER LUNGS: The visualized lower lungs are clear. LIVER: Homogeneous density without lesion. There is no dilation of the biliary tree. No calcified gallston es. SPLEEN: Normal size without lesion. PANCREAS: Within normal limits. KIDNEYS: Normal in size and shape. There is no mass, stone or hydronephrosis. ADRENAL GLANDS: Within normal limits. VASCULAR: There is no aortic aneurysm. BOWEL/MESENTERY: The stomach, small bowel, and colon demonstrate no acute abnormality. There is no free intraperitone al air or fluid. ABDOMINAL WALL: Within normal limits. RETROPERITONEUM: There is no lymphadenopathy. BLADDER: No wall thickening or mass. REPRODUCTIVE: Uterus surgically absent. INGUINAL: There is no lymphadenopathy or hernia. MUSCULOSKELETAL: Within normal limits for patient age. CONCLUSION: No acute CT findings in the abdomen or pelvis. Cosmo Burkett MD on October 20, 2016 at 17:26 Board Certified Radiologist. This report was verified electronically.
[2016-10-20] MEDS ORDERED: HEPARIN SODIUM - IV 10,000 UNITS/10 ML VIAL IV PRN ×2 (19:45)
[2016-10-20 20:20] LABS: APTT (PATIENT) 24.1 SEC (24.3-30.1)
[2016-10-20] MEDS: HEPARIN 25,000 UNITS-D5W 250 ML - PREMIX IV SCH (21:27)
[2016-10-21] VITALS (8 sets, daily range): BP systolic 128–158; BP diastolic 62–74; PULSE 80–107; RESP 14–18; TEMP 96–98.2; O2SAT 93–96
[2016-10-21 04:06] LABS: APTT (PATIENT) 60.3 SEC (24.3-30.1)
[2016-10-21] MEDS: HEPARIN SODIUM - SQ 10,000 UNITS/ML VIAL SQ SCH ×3 (05:00→21:00)
[2016-10-21] MEDS: methylPREDNISolone SOD SUCC 40 MG/1 ML VIAL IV PUSH SCH (06:33)
[2016-10-21] MEDS: INSULIN NovoLIN REGULAR SUPPLEMENTAL SCALE SQ SCH ×4 (06:37→21:00)
[2016-10-21] MEDS: HYDROCHLOROTHIAZIDE 12.5 MG CAP PO SCH (08:51)
[2016-10-21] MEDS: SODIUM CHLORIDE 0.9% FLUSH 5 ML FLUSH FLUSH SCH ×2 (08:51→21:00)
[2016-10-21] MEDS: LOSARTAN 50 MG TAB PO SCH (08:51)
[2016-10-21] MEDS: DOCUSATE SODIUM 100 MG CAP PO SCH ×2 (08:52→21:00)
--- NOTE | 2016-10-21 09:44 | MB ---
cc: KYLE AMIN GEORGE MD MOLPUS,MAURA LOU,DENNY SOSA DATE OF CONSULTATION 10/21/2016 REASON FOR CONSULTATION Follow up to consult note. This is a followup to initial consult from yesterday to update Adelaida Elmore who is accompanied by her daughter with findings in her case. She had a CT scan of the chest, abdomen and pelvis. I am pleased to report that it shows no overt evidence of metastatic disease. No adenopathy, nodularity or ascites. CA-125 remains normal at 8. It does, however, provide an explanation for her facial, upper extremity and upper trunk edema with a superior vena cava syndrome given that the CT scan of the chest shows a thrombus in the superior vena cava which is in the region of the catheter from her venous Port-A-Cath. I had the opportunity speak with Dr. Denny Lou yesterday evening and I agree with his recommendation and with interventional radiology's recommendation to remove the venous access port as this seems to be a contributor to the thrombus and she is not on any active chemotherapy and she is currently in remission with no evidence of disease. After removal of the port, this will help prevent worsening of the thrombus and her symptoms should hopefully gradually improve anticoagulation. I would defer to primary medicine team and/or if they wish for guidance to oversee anticoagulation. I would recommend consult with hematology/oncology. DISCUSSION Discussion ensued, questions were answered, they expressed a good understanding and were grateful for the follow-up and for the care provided. ASSESSMENT 1. History of stage IIB uterine papillary serous carcinoma. No evidence of disease. 2. 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 3. Discussion. PLAN: 1. Agree with recommendations to remove venous access port and I believe this consult has already been placed by interventional radiology. 2. I would defer post port removal anticoagulation management to her primary medicine team of if preferred consult Hematology/Oncology. 3. She is to continue follow-up with us on an outpatient basis as per our recommendation. Thank for the consultation. MD NESS Olivarez/MARIELA /9:18 AM /9:30 AM
--- NOTE | 2016-10-21 12:29 | HHI.PR ---
Subjective Remarks patient afebrile, doing well, no chest pain or short of breath on heparin drip, discussed with her the plan to remove the port today Objective Vitals Vital Signs Date Time Temp Pulse Resp B/P Pulse Ox O2 Delivery O2 Flow Rate FiO2 10/21/16 11:31 97.4 80 16 153/70 93 10/21/16 08:59 97.4 92 18 157/74 93 10/21/16 08:00 107 10/21/16 04:32 96.9 88 18 152/65 93 10/21/16 00:30 16 10/21/16 00:12 96.0 89 18 158/70 96 10/20/16 22:04 94 10/20/16 19:47 96.0 104 18 153/72 93 10/20/16 17:01 97.4 102 16 154/70 95 I/O 10/20/16 10/20/16 10/20/16 10/21/16 10/21/16 10/21/16 07:00 15:00 23:00 07:00 15:00 23:00 Intake Total 0 ml 800 ml Balance 0 ml 800 ml Intake Oral 0 ml 500 ml IV Total 300 ml # Voids 1 3 3 # Bowel Movements 0 Result Diagram: 10/20/1671410/20/1615 Objective Remarks - GENERAL: This is a well-nourished, well-developed patient, in no apparent distress. SKIN: No rashes, ecchymoses or lesions. Cool and dry. HEAD: Atraumatic. Normocephalic. No temporal or scalp tenderness. EYES: Pupils equal round and reactive. Extraocular motions intact. No scleral icterus. No injection or drainage. Positive periorbital edema ENT: Nose without bleeding, purulent drainage or septal hematoma. Throat without erythema, tonsillar hypertrophy or exudate. Uvula midline. Airway patent. NECK: Trachea midline. No JVD or lymphadenopathy appreciated. Minimally tender to palpation, increased girth of the neck CARDIOVASCULAR: Regular rate and rhythm without murmurs, gallops, or rubs. RESPIRATORY: Clear to auscultation. Breath sounds equal bilaterally. No wheezes , rales, or rhonchi. GASTROINTESTINAL: Abdomen soft, non-tender, nondistended. No hepato-splenomegaly , or palpable masses. No guarding. MUSCULOSKELETAL: Extremities without clubbing, cyanosis, or edema. No joint tenderness, effusion, or edema noted. No calf tenderness. Negative Homans sign bilaterally. NEUROLOGICAL: Awake and alert. Cranial nerves II through XII intact. Motor and sensory grossly within normal limits. Five out of 5 muscle strength in all muscle groups. Normal speech. A/P Assessment and Plan 71 years old female with history of uterine cancer and hypertension admitted with SVC syndrome with neck swelling with periorbital edema due to thrombus in the SVC History of uterine cancer status post chemotherapy Worsening leukocytosis mostly stress-induced Hypertension DVT prophylaxis Plan: personally reviewed the chest CT positive for thrombus in the SVC, started on heparin drip, discussed with oncologist and interventional radiologist, plan to remove the port, on heparin drip DC Solu-Medrol Personally reviewed head CT and neck CT Appreciate ENT consult, continue Solu-Medrol, will follow as an outpatient Pain management with morphine sulfate, antiepileptic Normal TSH appreciated Consult Dr. Delaorsa normal renal ultrasound On losartan and hydrochlorothiazide Monitor CBC BMP and vital Denny Gaitan MD Oct 21, 2016 12:29 Denny Gaitan MD Oct 21, 2016 12:29
[2016-10-21 15:27] LABS: APTT (PATIENT) 65.4 SEC (24.3-30.1)
[2016-10-21 15:33] LABS: INTERNATIONAL NORMALIZED RATIO 1.1 RATIO
[2016-10-21] MEDS ORDERED: LORazepam 2 MG/ML VIAL ONE (16:16)
[2016-10-21] MEDS ORDERED: fentaNYL CITRATE 250 MCG/5 ML AMP ONE (16:16)
[2016-10-21] MEDS ORDERED: ceFAZolin 2 GM PREMIX 50 ML ONE (16:32)
[2016-10-21] MEDS ORDERED: LIDOCAINE 1%/EPINEPHrine 1:100,000 SOLN 20 ML VIAL ONE (16:37)
--- NOTE | 2016-10-21 17:22 | PD.RAD ---
Post Procedure Progress Note Pre Procedure Diagnosis: (1) Uterine cancer (2) Acute superior vena cava thrombosis Post Procedure Diagnosis: (1) Uterine cancer (2) Acute superior vena cava thrombosis Procedure Date: Oct 21, 2016 Supervising Radiologist: Cosmo Burkett Proceduralist/Assist: RT Shruti(R) Anesthesia: Local, Conscious Sedation Plan of Activity Patient to Unit: Nursing Unit Patient Condition: Fair See PACS Report for procedural detail/treatment Central Venous Access Device Procedure 1 Right Infusaport Removal Additional Detail: tip sent for culture Cosmo Burkett MD Oct 21, 2016 17:22
--- NOTE | 2016-10-21 17:27 | RADRPT ---
EXAM DATE/TIME: 10/21/2016 00:00 [facility] COMPARISON: No previous studies available for comparison. INDICATIONS : Patient with a history of uterine cancer, infected infusaport needs removed. MEDICAL HISTORY : Anemia Uterine cancer HTN Mitral valve regurgitation PMB SURGICAL HISTORY : Hysteroscopy D&C Removal of uterine polyp Colonoscopy ENCOUNTER: Subsequent ACUITY: > 1 year PAIN SCORE: 0/10 1.) 2 mg lorazepam (Ativan) IV 2.) 125 mcg fentanyl (Sublimaze) IV Prophylactic antibiotics were administered with appropriate pre-procedure timing. Vancomycin within 2 hrs of procedure, Ancef (or alternative) within 1 hr of procedure. PROCEDURE : 1. Removal of Qklojm-[id number]-apuk. 2. Conscious sedation with continuous EKG and oximetry monitoring. The risk, benefits and potential complications of Jfvoub-k-Anki removal were discussed. Written conse nt was obtained. The patient was placed supine. The chest wall was prepped in sterile fashion. Full sterile techniqu e was used, including cap, mask, sterile gloves and gown, and a large sterile sheet. Hand hygiene an d 2% chlorhexidine and/or Betadine/alcohol prep was utilized per protocol for cutaneous antisepsis. The skin and subcutaneous tissues were infiltrated with local anesthetic solution. A small incision w as made, the subcutaneous pocket was opened. The port was dissected from the subcutaneous tissues and easily removed in one piece. The pocket incision was closed with subcuticular Vicryl suture. Steri -Strips were applied. Conscious sedation was performed with the prescribed dosages and duration as above. The patient tole rated the procedure well and there were no complications. EKG and oximetry remained stable throughou t the procedure. The patient was sent to post anesthesia recovery in stable condition. CONCLUSION: Uncomplicated port removal as above. The catheter tip was sent for culture per request Cosmo Burkett MD on October 21, 2016 at 17:25 Board Certified Radiologist. This report was verified electronically.
[2016-10-21] MEDS: HEPARIN 25,000 UNITS-D5W 250 ML - PREMIX IV SCH (19:20)
[2016-10-22] VITALS (7 sets, daily range): BP systolic 114–142; BP diastolic 56–68; PULSE 71–104; RESP 18; TEMP 97.5–98.8; O2SAT 89–98
[2016-10-22 02:06] LABS: APTT (PATIENT) 44.4 SEC (24.3-30.1)
[2016-10-22] MEDS: HEPARIN SODIUM - SQ 10,000 UNITS/ML VIAL SQ SCH ×3 (05:00→21:00)
[2016-10-22] MEDS: INSULIN NovoLIN REGULAR SUPPLEMENTAL SCALE SQ SCH ×4 (06:18→21:35)
[2016-10-22] MEDS: DOCUSATE SODIUM 100 MG CAP PO SCH ×2 (08:00→21:23)
[2016-10-22] MEDS: HYDROCHLOROTHIAZIDE 12.5 MG CAP PO SCH (08:01)
[2016-10-22] MEDS: LOSARTAN 50 MG TAB PO SCH (08:01)
[2016-10-22 08:15] LABS: APTT (PATIENT) 54.4 SEC (24.3-30.1)
[2016-10-22] MEDS: SODIUM CHLORIDE 0.9% FLUSH 5 ML FLUSH FLUSH SCH ×2 (09:00→21:23)
--- NOTE | 2016-10-22 12:55 | HHI.PR ---
Subjective Remarks Follow up patient with SVC syndrome due to thrombus, status post port removal, and history of uterine cancer Patient today doing better, facial and neck swelling significantly improved No fever or chills, she complained of back pain Objective Vitals Vital Signs Date Time Temp Pulse Resp B/P Pulse Ox O2 Delivery O2 Flow Rate FiO2 10/22/16 11:10 97.5 75 18 114/56 93 10/22/16 07:49 97.5 71 18 136/62 98 10/22/16 05:02 104 10/22/16 04:31 98.8 89 18 142/63 97 10/22/16 00:27 98.4 79 18 126/68 98 10/21/16 19:35 98.2 93 18 128/62 95 10/21/16 17:37 101 14 139/62 94 10/21/16 15:41 97.5 94 16 141/70 93 I/O 10/21/16 10/21/16 10/21/16 10/22/16 10/22/16 10/22/16 07:00 15:00 23:00 07:00 15:00 23:00 Intake Total 96 ml 240 ml Balance 96 ml 240 ml Intake Oral 240 ml IV Total 96 ml # Voids 2 2 1 Result Diagram: 10/20/1671410/20/16714 Objective Remarks - GENERAL: This is a well-nourished, well-developed patient, in no apparent distress. SKIN: No rashes, ecchymoses or lesions. Cool and dry. HEAD: Atraumatic. Normocephalic. No temporal or scalp tenderness. EYES: Pupils equal round and reactive. Extraocular motions intact. No scleral icterus. No injection or drainage. Positive periorbital edema ENT: Nose without bleeding, purulent drainage or septal hematoma. Throat without erythema, tonsillar hypertrophy or exudate. Uvula midline. Airway patent. NECK: Trachea midline. No JVD or lymphadenopathy appreciated. Minimally tender to palpation, increased girth of the neck CARDIOVASCULAR: Regular rate and rhythm without murmurs, gallops, or rubs. RESPIRATORY: Clear to auscultation. Breath sounds equal bilaterally. No wheezes , rales, or rhonchi. GASTROINTESTINAL: Abdomen soft, non-tender, nondistended. No hepato-splenomegaly , or palpable masses. No guarding. MUSCULOSKELETAL: Extremities without clubbing, cyanosis, or edema. No joint tenderness, effusion, or edema noted. No calf tenderness. Negative Homans sign bilaterally. NEUROLOGICAL: Awake and alert. Cranial nerves II through XII intact. Motor and sensory grossly within normal limits. Five out of 5 muscle strength in all muscle groups. Normal speech. A/P Assessment and Plan 71 years old female with history of uterine cancer and hypertension admitted with SVC syndrome with neck swelling with periorbital edema due to thrombus in the SVC History of uterine cancer status post chemotherapy Worsening leukocytosis mostly stress-induced Hypertension DVT prophylaxis Plan: Reviewed notes by Dr. Delarosa, status post port removal 10/21/15 Will consult hematology for further medical correlation management chest CT positive for thrombus in the SVC, started on heparin drip, status post port removal by interventional radiologist, continue on heparin drip and Solu- Medrol Personally reviewed head CT and neck CT unremarkable Appreciate ENT consult, continue Solu-Medrol, will follow as an outpatient Pain management with morphine sulfate, antiepileptic Normal TSH appreciated Consult Dr. Delarosa normal renal ultrasound On losartan and hydrochlorothiazide Monitor CBC BMP and vital Denny Gaitan MD Oct 22, 2016 12:55
[2016-10-22] MEDS: methylPREDNISolone SOD SUCC 40 MG/1 ML VIAL IV PUSH SCH ×2 (14:11→21:23)
[2016-10-22 14:24] LABS: AUTOMATED NEUTROPHIL # 11.4 TH/MM3 (1.8-7.7); BASOPHIL % 0.2 % (0.0-2.0); EOSINOPHIL % 0.1 % (0.0-4.0); HEMATOCRIT 31.7 % (35.0-46.0); HEMO FLAGS AUTO DIFF; LYMPH % 18.4 % (9.0-44.0); LYMPHOCYTE # 2.9 TH/MM3 (1.0-4.8); MEAN CORPUSCULAR HEMOGLOBIN 23.6 PG (27.0-34.0); MEAN CORPUSCULAR HGB CONC 33.2 % (32.0-36.0); MONO % 10.4 % (0.0-8.0); NEUT % 70.9 % (16.0-70.0); PLATELET COUNT 246 TH/MM3 (150-450); RED BLOOD COUNT 4.46 MIL/MM3 (4.00-5.30)
[2016-10-22 14:52] LABS: PLATELET ESTIMATE SMEAR NORMAL (NORMAL); PLATELET MORPHOLOGY NORMAL (NORMAL); SCAN/DIFF AUTO DIFF CONFIRMED
[2016-10-22] MEDS: HEPARIN 25,000 UNITS-D5W 250 ML - PREMIX IV SCH (15:54)
--- NOTE | 2016-10-22 20:31 | MB ---
cc: MAURA BOWEN MD,DENNY VICK,ARAMIS Spencer M.D. DATE OF CONSULTATION: 10/22/2016. REFERRING PHYSICIAN: Dr. Denny Gaitan. CHIEF COMPLAINT Dr. Gaitan requested consultation for Mrs. Elmore regarding superior vena cava syndrome and recommendations for anticoagulation. HISTORY OF PRESENT ILLNESS: Mrs. Elmore is a 71-year-old woman well-known patient to Dr. Maura Bowen. There is a history of stage IIB uterine papillary serous carcinoma status post robotic surgery and six cycles of adjuvant chemotherapy with Taxol and carboplatin. She has had no evidence of disease. Her CA-125 was normal. In the early part of the week, she woke up with a headache and took Motrin. That morning she developed facial swelling which prompted them to come into the emergency room on October 18, 2016 where she was seen by Dr. Ornelas. At that time, her complaint was related to the headache and taking morphine. Imaging studies initially directed at the head including a CT scan of the head shows no acute intracranial findings. She was referred back to her primary physician for evaluation. Her symptoms persisted and therefore she returned back to the emergency room the following day. She was admitted for 24-hour observation because of difficulty swallowing, neck swelling and syncopal episode. They considered nephrotic range proteinuria causing facial swelling versus allergic reaction to Motrin. Ultrasound of the kidneys was normal. CT of the neck shows nonspecific findings. Ultimately a CT of the chest showed superior vena cava thromboses which was catheter-related. Her port was removed by Dr. Burkett October 21, 2016. She has been placed on unfractionated heparin. Mrs. Elmore reports a decrease in swelling. She still has some tightness in her right side and her right upper arm. She reports improvement in her eye and neck swelling. She no longer has a syncopal episodes. She has no prior history of deep vein thromboses. She is not typically prone to headaches and her headache has resolved. She has tolerated unfractionated heparin well. She has some bruising in her arms. She has no bleeding. The dressing from her port removal is clear. She feels well post her treatment for a cancer. Hematology/Oncology is consulted for trace of anticoagulant therapy. REVIEW OF SYSTEMS: The rest of her review of systems is negative. PAST MEDICAL HISTORY: 1. History of uterine cancer as described above. 2. Hypertension. 3. Superior vena cava syndrome. 4. Microcytic anemia. 5. Mild hyperglycemia. FAMILY HISTORY: Her family history is significant for mother being on Coumadin. No other family history of cancer. Mother had diabetes and hypertension. SOCIAL HISTORY: She is , retired. She denies any tobacco use. She drinks alcohol occasionally. She denies any illicit drug use. PAST SURGICAL HISTORY: 1. Colonoscopy in 2015. 2. Port placement. 3. A port removal. 4. Robotic-assisted laparoscopic hysterectomy. 5. Bilateral salpingo-oophorectomy. 6. Bilateral pelvic lymphadenectomy. 7. Periaortic lymphadenectomy. 8. Lysis of adhesions. PHYSICAL EXAMINATION: VITAL SIGNS: Temperature is 97.5, heart rate 75, respiratory rate 18, blood pressure 114/56, saturation 93%. GENERAL: Ms. Elmore is a well-developed, well-nourished pleasant short-statured woman in no acute distress. She looks younger than her stated age. HEAD, EYES, EARS, NOSE, THROAT: Her pupils are round and reactive to light and accommodation. She is mildly hyperemic. Her oropharynx is clear. NECK: The neck is supple. There is still some tightness in the right side in the right upper arm. LUNGS: Clear to auscultation. CARDIOVASCULAR: Exam reveals normal rate, rhythm. ABDOMEN: Abdomen is benign. EXTREMITIES: Lower extremities with no edema. NEUROLOGIC: Exam is nonfocal. SKIN: Dressing over the right chest wall site is clear. LABORATORY DATA: Significant for a microcytic anemia. The anemia has been since 2014. She was not anemic in 2006. The microcytic picture has been since 2006. Mild leukocytosis. Glucose of 156. CA-125 is 6.1. ASSESSMENT AND PLAN: Mrs. Elmore is a 71-year-old woman with multiple medical problems, well-known patient to Dr. Bowen with a stage IIB uterine papillary serous carcinoma status post definitive surgery and adjuvant systemic chemotherapy with no evidence of recurrent disease. She presents with acute onset of facial swelling which turned out to be a superior vena cava syndrome exacerbated by a port. Her port has been removed. Her swelling is starting to decrease. She is tolerating unfractionated heparin well. We discussed the rationale for continued anticoagulation in light of her deep vein thromboses in the superior vena cava. We discussed options for anticoagulant therapy from low-molecular weight heparin to Coumadin to the new oral anticoagulants. She is familiar with Coumadin as her mother took it. She is less inclined to use the unfractionated or low-molecular weight heparin because of its delivery. She does not want to inject her self. We discussed the risks and benefits of the new oral anticoagulant. We discussed the efficacy of the new oral anticoagulant as it compares to Coumadin. It however does not have an antidote approved by the FDA. We discussed its mechanism of action. She feels comfortable to take the oral anticoagulant. I anticipate that she could be discharged in the morning when stable. We will consult with the dependency case manager to provide her information and a starter pack for Xarelto. The risks and benefits of Xarelto will be discussed. Iron studies will be obtained. She has microcytic anemia which may be related to iron deficiency. The microcytosis has been persistent since 2006, which suggests that this is possible thalassemia trait. There is a point in time when she was not anemic. It would be ideal to correct her anemia. She will be started and maintained on anticoagulant therapy. Her questions were answered to her satisfaction. At her request, I discussed this with her daughter. MD PIPO Roth/KARRIE /3:22 PM /8:08 PM
[2016-10-23] MEDS: HEPARIN SODIUM - SQ 10,000 UNITS/ML VIAL SQ SCH (04:17)
[2016-10-23 04:39] VITALS: BP 161/71; PULSE 87; RESP 21; TEMP 98.8; O2SAT 98
[2016-10-23] MEDS: INSULIN NovoLIN REGULAR SUPPLEMENTAL SCALE SQ SCH (05:34)
[2016-10-23 07:12] VITALS: BP 138/66; PULSE 70; RESP 18; TEMP 97.4; O2SAT 95
[2016-10-23 08:53] LABS: AUTOMATED NEUTROPHIL # 12.2 TH/MM3 (1.8-7.7); BASOPHIL # 0.1 TH/MM3 (0-0.2); BASOPHIL % 0.3 % (0.0-2.0); HEMATOCRIT 34.5 % (35.0-46.0); LYMPH % 18.7 % (9.0-44.0); LYMPHOCYTE # 3.1 TH/MM3 (1.0-4.8); MEAN CELL VOLUME 71.9 FL (80.0-100.0); MEAN CORPUSCULAR HEMOGLOBIN 23.2 PG (27.0-34.0); MEAN CORPUSCULAR HGB CONC 32.2 % (32.0-36.0); MONO % 6.6 % (0.0-8.0); NEUT % 74.4 % (16.0-70.0); PLATELET COUNT 258 TH/MM3 (150-450); RED BLOOD COUNT 4.79 MIL/MM3 (4.00-5.30); RED CELL DISTRIBUTION WIDTH 14.9 % (11.6-17.2); WHITE BLOOD COUNT 16.4 TH/MM3 (4.0-11.0)
[2016-10-23 08:55] LABS: APTT (PATIENT) 50.4 SEC (24.3-30.1)
[2016-10-23] MEDS: HYDROCHLOROTHIAZIDE 12.5 MG CAP PO SCH (09:11)
[2016-10-23] MEDS: methylPREDNISolone SOD SUCC 40 MG/1 ML VIAL IV PUSH SCH (09:11)
[2016-10-23] MEDS: LOSARTAN 50 MG TAB PO SCH (09:11)
[2016-10-23] MEDS: DOCUSATE SODIUM 100 MG CAP PO SCH (09:11)
[2016-10-23] MEDS: SODIUM CHLORIDE 0.9% FLUSH 5 ML FLUSH FLUSH SCH (09:12)
[2016-10-23 09:19] LABS: HEMO FLAGS AUTO DIFF
[2016-10-23] MEDS ORDERED: XARE20TA PO (10:13)
[2016-10-23] MEDS ORDERED: HYDR-3516 PO (10:13)
[2016-10-23] MEDS ORDERED: ACETAMINOPHEN/HYDROcodone 325 MG/5 MG TAB PO PRN (10:15)
--- NOTE | 2016-10-23 10:21 | HHI.DS ---
Discharge Summary Admission Date Oct 19, 2016 at 12:17 Discharge Date: Oct 23, 2016 Admitting Diagnosis neck edema rule out angioedema (1) Acute superior vena cava thrombosis ICD Code: I82.210 (2) Uterine cancer ICD Code: C55 (3) Edema ICD Code: R60.9 (4) Neck swelling ICD Code: R22.1 (5) Periorbital swelling ICD Code: H57.8 Procedures Port removal Brief History - From Admission 71 years old female with history of uterine cancer and hypertension who underwent chemotherapy followed up by Dr. Delarosa. Came to the ED complaining of neck swelling and periorbital edema. Patient stated her symptoms initially started 2 nights ago with neck pain which become headache she took some Motrin and try to sleep it off but it didn't help, the headache was more of a tension type like along with nauseous, clammy, cold sweats, and headache. Patient woke up today with a swollen neck periorbital edema, her daughter who was at the bedside told me this is not her baseline and usually her neck is then, the daughter said patient had a blue lips this morning. In ED CT of the head was negative yesterday, patient was sent home, but she came back again today, neck CT has been done which showed only soft tissue. Currently patient denied chest pain short of breath, she feels hungry, no abdominal pain diarrhea or constipation, no orthopnea or PND or leg swelling. CBC/BMP: 10/23/16 0745 10/20/16 0715 Significant Findings Laboratory Tests Test 10/20/16 10/21/16 10/21/16 10/21/16 19:51 03:17 10:35 15:00 Activated Partial 24.1 SEC 60.3 SEC 80.0 SEC 65.4 SEC Thromboplast Time (24.3-30.1) (24.3-30.1) (24.3-30.1) (24.3-30.1) Prothrombin Time 12.0 SEC (9.8-11.6) Test 10/22/16 10/22/16 10/22/16 10/23/16 01:30 07:00 13:50 07:45 Activated Partial 44.4 SEC 54.4 SEC 50.4 SEC Thromboplast Time (24.3-30.1) (24.3-30.1) (24.3-30.1) White Blood Count 16.0 TH/MM3 16.4 TH/MM3 (4.0-11.0) (4.0-11.0) Hemoglobin 10.5 GM/DL 11.1 GM/DL (11.6-15.3) (11.6-15.3) Hematocrit 31.7 % 34.5 % (35.0-46.0) (35.0-46.0) Mean Corpuscular Volume 71.0 FL 71.9 FL (80.0-100.0) (80.0-100.0) Mean Corpuscular Hemoglobin 23.6 PG 23.2 PG (27.0-34.0) (27.0-34.0) Neutrophils (%) (Auto) 70.9 % 74.4 % (16.0-70.0) (16.0-70.0) Monocytes (%) (Auto) 10.4 % (0.0-8.0) Neutrophils # (Auto) 11.4 TH/MM3 12.2 TH/MM3 (1.8-7.7) (1.8-7.7) Monocytes # (Auto) 1.7 TH/MM3 1.1 TH/MM3 (0-0.9) (0-0.9) PE at Discharge - GENERAL: This is a well-nourished, well-developed patient, in no apparent distress. SKIN: No rashes, ecchymoses or lesions. Cool and dry. HEAD: Atraumatic. Normocephalic. No temporal or scalp tenderness. EYES: Pupils equal round and reactive. Extraocular motions intact. No scleral icterus. No injection or drainage. Positive periorbital edema ENT: Nose without bleeding, purulent drainage or septal hematoma. Throat without erythema, tonsillar hypertrophy or exudate. Uvula midline. Airway patent. NECK: Trachea midline. No JVD or lymphadenopathy appreciated. Minimally tender to palpation, increased girth of the neck CARDIOVASCULAR: Regular rate and rhythm without murmurs, gallops, or rubs. RESPIRATORY: Clear to auscultation. Breath sounds equal bilaterally. No wheezes , rales, or rhonchi. GASTROINTESTINAL: Abdomen soft, non-tender, nondistended. No hepato-splenomegaly , or palpable masses. No guarding. MUSCULOSKELETAL: Extremities without clubbing, cyanosis, or edema. No joint tenderness, effusion, or edema noted. No calf tenderness. Negative Homans sign bilaterally. NEUROLOGICAL: Awake and alert. Cranial nerves II through XII intact. Motor and sensory grossly within normal limits. Five out of 5 muscle strength in all muscle groups. Normal speech. Hospital Course 71 years old female with history of uterine cancer status post chemotherapy presented with facial periorbital and neck swelling, head and neck CT, showed only soft tissue swelling in the neck, greater on chest CT showed SVC thrombus, Dr. Delarosa consulted, radiologist recommended removing the port, which Dr. Delarosa agreed with, port was removed, patient during that was on heparin drip, daily obtain consultation from hematology*Dr. Vanegas who discuss the issue in depth with the patient and decided on doing Xarelto. Heparin drip was stopped started on Xarelto, discussed with nurses and with medical case manager on the day of discharge to make sure patient will get her pills after being discharged [id number] encounter performed with the patient on discharge day, as well as physical exam, summary of hospitalization course and postdischarge plan has been D/W the patient. D/W nurse D/W medical case manager. Discharge medications reviewed and printed and signed, post discharge follow up visit with PCP and other specialist as well as Brief hospital course and discharge summary has been placed. Pt Condition on Discharge: Fair Discharge Disposition: Discharge Home Discharge Time: > 30 minutes Discharge Instructions DIET: Follow Instructions for: Heart Healthy Diet Activities you can perform: Weight Bearing as Javier Follow up Referrals: Oncology - 1 Week with Tamra Vanegas MD New Medications: Rivaroxaban (Xarelto) 20 Mg Tab 20 MG PO DAILY Blood Clot Prevention #30 Ref 0 TAB Hydrocodone-Acetaminophen (Hydrocodone-Acetaminophen) 5-325 mg Tab 1 TAB PO Q6H PRN pain 5 -10 #15 TAB Continued Medications: B-Complex Vitamins (Vitamin B Complex) 1 Tab 1 TAB PO DAILY Calcium-Vitamins D & K (Calcium + D + K) 750-500-40 Mg-Unit-Mcg Tab 1 TAB PO TID TAB Losartan-Hydrochlorothiazide (Hyzaar) 50-12.5 Mg Tab 1 TAB PO DAILY Blood Pressure Management #30 Ref 0 TAB Denny Gaitan MD Oct 23, 2016 10:21
--- NOTE | 2016-10-23 10:23 | HHI.PR ---
Subjective Remarks Doing well, swelling is much better No fever or chills, swallowing is normal Patient will be started on Xarelto per hematology recommendation, discharge planning discussed with the patient Objective Vitals Vital Signs Date Time Temp Pulse Resp B/P Pulse Ox O2 Delivery O2 Flow Rate FiO2 10/23/16 07:12 97.4 70 18 138/66 95 10/23/16 04:39 98.8 87 21 161/71 98 10/22/16 20:20 Nasal Cannula 2.00 10/22/16 19:41 98.2 93 18 125/67 89 10/22/16 15:34 98.2 80 18 124/60 93 10/22/16 11:10 97.5 75 18 114/56 93 Result Diagram: 10/23/16 0745 10/20/16 0715 Objective Remarks - GENERAL: This is a well-nourished, well-developed patient, in no apparent distress. SKIN: No rashes, ecchymoses or lesions. Cool and dry. HEAD: Atraumatic. Normocephalic. No temporal or scalp tenderness. EYES: Pupils equal round and reactive. Extraocular motions intact. No scleral icterus. No injection or drainage. Positive periorbital edema ENT: Nose without bleeding, purulent drainage or septal hematoma. Throat without erythema, tonsillar hypertrophy or exudate. Uvula midline. Airway patent. NECK: Trachea midline. No JVD or lymphadenopathy appreciated. Minimally tender to palpation, increased girth of the neck CARDIOVASCULAR: Regular rate and rhythm without murmurs, gallops, or rubs. RESPIRATORY: Clear to auscultation. Breath sounds equal bilaterally. No wheezes , rales, or rhonchi. GASTROINTESTINAL: Abdomen soft, non-tender, nondistended. No hepato-splenomegaly , or palpable masses. No guarding. MUSCULOSKELETAL: Extremities without clubbing, cyanosis, or edema. No joint tenderness, effusion, or edema noted. No calf tenderness. Negative Homans sign bilaterally. NEUROLOGICAL: Awake and alert. Cranial nerves II through XII intact. Motor and sensory grossly within normal limits. Five out of 5 muscle strength in all muscle groups. Normal speech. Procedures Port removal A/P Problem List: (1) Acute superior vena cava thrombosis ICD Code: I82.210 Status: Acute (2) Uterine cancer ICD Code: C55 Status: Acute (3) Edema ICD Code: R60.9 Status: Acute (4) Neck swelling ICD Code: R22.1 Status: Acute (5) Periorbital swelling ICD Code: H57.8 Status: Acute Assessment and Plan 71 years old female with history of uterine cancer and hypertension admitted with SVC syndrome with neck swelling with periorbital edema due to thrombus in the SVC History of uterine cancer status post chemotherapy Worsening leukocytosis mostly stress-induced Hypertension DVT prophylaxis Plan: status post port removal 10/21/15 Appreciate hematology consultation, after discussion with the patient decided on doing Xarelto D/W nursing transplant case manager to secure Xarelto after discharge chest CT positive for thrombus in the SVC, started on heparin drip, status post port removal by interventional radiologist, continue on heparin drip and Solu- Medrol Personally reviewed head CT and neck CT unremarkable Appreciate ENT consult, continue Solu-Medrol, will follow as an outpatient Pain management with morphine sulfate, antiepileptic Normal TSH appreciated Consult Dr. Delarosa normal renal ultrasound On losartan and hydrochlorothiazide Monitor CBC BMP and vital Problem Qualifiers (1) Edema: Qualified Code: R60.0 - Localized edema Denny Gaitan MD Oct 23, 2016 10:23
[2016-10-23] MEDS ORDERED: RIVAROXABAN 20 MG TAB PO ONE (10:30)
[2016-10-23 11:03] LABS: PLATELET ESTIMATE SMEAR NORMAL (NORMAL); PLATELET MORPHOLOGY NORMAL (NORMAL); SCAN/DIFF AUTO DIFF CONFIRMED
[2016-10-23 11:50] VITALS: BP 132/62; PULSE 91; RESP 18; TEMP 97.4; O2SAT 93
== END 2016-10-23 14:44 | disposition home or self-care (01) ==
LOC: NEPC 07:28 → NEDA 12:17 → NEPHCDU 16:41
PROVIDERS: ADMIT Hospitalist; ATTEND Hospitalist
DX: I82.210 Acute embolism and thrombosis of superior vena cava (principal); C55 Malignant neoplasm of uterus, part unspecified; R60.0 Localized edema; H57.8 Other specified disorders of eye and adnexa; I87.1 Compression of vein; I10 Essential (primary) hypertension; D50.9 Iron deficiency anemia, unspecified; D72.829 Elevated white blood cell count, unspecified; R73.9 Hyperglycemia, unspecified; Z92.21 Personal history of antineoplastic chemotherapy
CPT/HCPCS: 36590; 70491; 71020; 71260; 74177; 76775; 80048; 81001; 82728; 82948; 84443; 85025; 85610; 85730; 86304; 87071; 93005; 94620; 96374; 96375; 99285; G0378; J0690; J1200; J1644; J2060; J2405; J2920; J2930; J3010; J7030; Q9963; Q9967

== ENCOUNTER 2016-10-28 13:59 | Inpatient (IN) | payer OTHER, MEDICARE ==
[~2016-10-28] VITALS: Ht 152.4 cm; Wt 67.0 kg
[~2016-10-28 13:59] MED LIST changes: +HYDR-3516 PO; +XARE20TA PO
[2016-10-28] MEDS ORDERED: BISACODYL 10 MG SUPP PR PRN (14:15)
[2016-10-28] MEDS ORDERED: NALOXONE HCL 0.4 MG/ML AMP IV PRN (14:15)
[2016-10-28] MEDS ORDERED: MAGNESIUM HYDROXIDE SUSP 30 ML CUP PO PRN (14:15)
[2016-10-28] MEDS ORDERED: ONDANSETRON HCL 4 MG/2 ML VIAL IVP PRN (14:15)
[2016-10-28] MEDS ORDERED: SODIUM CHLORIDE 0.9% FLUSH 5 ML FLUSH FLUSH PRN (14:15)
[2016-10-28] MEDS ORDERED: ACETAMINOPHEN 325 MG TAB PO PRN (14:15)
[2016-10-28] MEDS ORDERED: PROCHLORPERAZINE 25 MG SUPP PR PRN (14:15)
[2016-10-28] MEDS: SODIUM CHLOR 0.9% 1000 ML INJ 1,000 ML IV SCH (15:00)
[2016-10-28] MEDS ORDERED: HEPARIN-D5W INJ 250 ML IV SCH ×3 (15:45→19:45)
[2016-10-28 16:00] VITALS: BP 115/58; PULSE 85; RESP 16; TEMP 98; O2SAT 95
[2016-10-28] MEDS ORDERED: HEPARIN-D5W INJ 250 ML ONE (16:07)
[2016-10-28] MEDS ORDERED: MIDAZOLAM HCL 5 MG/5 ML VIAL ONE (17:03)
[2016-10-28] MEDS ORDERED: fentaNYL CITRATE 250 MCG/5 ML AMP ONE (17:03)
--- NOTE | 2016-10-28 17:13 | HHI.HP ---
[facility] Primary [facility] Physician Cammie Pride MD Admission Diagnosis Diagnoses: Chief Complaint: Chest, neck, arm swelling. Travel History International Travel<30 Days: No Contact w/Intl Traveler <30 Da: No Traveled to Known Affected Are: No History of Present Illness Ms. Elmore is a pleasant 71-year-old female with a history of uterine cancer who was admitted from her oncologist's office due to upper extremity swelling, neck swelling, upper chest swelling. 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 Her port was removed by Dr. Burkett on 10/21/2016. Patient's SVC syndrome improved and subsequently patient was discharged on Xarelto after hematology consultation. At the time of this interview, patient denies any chest pain, shortness of breath, fever or chills. She denies any changes in her bowel or bladder habits. Review of Systems ROS Limitations: Other (negative except as noted in the history of present illness) Past Family Social History Past Medical History Uterine cancer stage IIIB, hypertension Past Surgical History Wrist surgery with metal plate placements. Allergies: Coded Allergies: No Known Allergies (Verified , 10/19/16) Family History No significant family history of Alzheimer's, Parkinson's. Social History Does not smoke. Drinks socially. Physical Exam Vital Signs Vital Signs Date Time Temp Pulse Resp B/P Pulse Ox O2 Delivery O2 Flow Rate FiO2 10/28/16 16:00 98.0 85 16 115/58 95 Physical Exam GENERAL: This is a well-nourished, well-developed patient, in no apparent distress. SKIN: No rashes, ecchymoses or lesions. Warm and dry. Upper extremity edema present. Neck, upper chest edema. HEAD: Atraumatic. Normocephalic. No temporal or scalp tenderness. EYES: Pupils equal round and reactive. No injection or drainage. ENT: Nose without bleeding, purulent drainage or septal hematoma. Airway patent. NECK: Trachea midline. No lymphadenopathy. Supple, nontender, no meningeal signs. CARDIOVASCULAR: Regular rate and rhythm without murmurs, gallops, or rubs. No JVD. RESPIRATORY: Clear to auscultation. Breath sounds equal bilaterally. No wheezes , rales, or rhonchi. GASTROINTESTINAL: Abdomen soft, non-tender, nondistended. No guarding. MUSCULOSKELETAL: Extremities without clubbing, cyanosis, or edema. NEUROLOGICAL: Awake and alert. Cranial nerves II through XII intact. No focal neurological deficits. Normal speech. Assessment and Plan Problem List: (1) SVC (superior vena cava obstruction) ICD Code: I87.1 Status: Acute (2) Uterine cancer ICD Code: C55 Status: Acute (3) HTN (hypertension) ICD Code: I10 Status: Acute Assessment and Plan Ms. Elmore is a pleasant 71 year old female with a history of Uterine cancer who was admitted to the hospital with neck/upper chest, upper extremity swelling consistent with SVC syndrome. Patient has been on Xarelto. - SVC Syndrome - Recently diagnosed port related SVC thrombosis. - Port was removed during previous admission and patient was discharged home on Xarelto based on her preference. - Currently, patient is hemodynamically stable. She is waiting to go to IR for possible tPA. - Consider Lovenox 1mg/kg BID or 1.5mg/kg Qday for anti-coagulation on discharge. Warfarin would be another option. - Uterine cancer stage IIIB - s/p robotic surgery, chemotherapy with Taxol and Carboplatin. - Follows with Dr. Ventura. - Hypertension - Continue Losartan, HCTZ. Full code. SCDs. Discussed with Dr. Ventura, patient and patient's daughter. Physician Certification 2 Midnight Certification Type: Admission for Inpatient Services Order for Inpatient Services The services are ordered in accordance with Medicare regulations or non- Medicare payer requirements, as applicable. In the case of services not specified as inpatient-only, they are appropriately provided as inpatient services in accordance with the 2-midnight benchmark. Estimated LOS (days): 2 days is the estimated time the patient will need to remain in the hospital, assuming treatment plan goals are met and no additional complications. Post-Hospital Plan: Home Arianna Figueroa DO Oct 28, 2016 17:13
[2016-10-28] MEDS ORDERED: ACETAMINOPHEN/HYDROcodone 325 MG/5 MG TAB PO PRN (17:30)
[2016-10-28 17:53] VITALS: O2SAT 95
[2016-10-28] MEDS ORDERED: ALTEPLASE RECOMBINANT 2 MG VIAL IART ONE (18:20)
[2016-10-28] MEDS ORDERED: IOHEXOL 350 MG/ML 50 ML BTL (for RAD DIAG) IV ONE (18:20)
[2016-10-28 18:35] LABS: AUTOMATED NEUTROPHIL # 6.8 TH/MM3 (1.8-7.7); BASOPHIL # 0.1 TH/MM3 (0-0.2); BASOPHIL % 0.7 % (0.0-2.0); EOSINOPHIL # 0.1 TH/MM3 (0-0.4); EOSINOPHIL % 1.1 % (0.0-4.0); HEMATOCRIT 30.9 % (35.0-46.0); LYMPH % 28.4 % (9.0-44.0); LYMPHOCYTE # 3.2 TH/MM3 (1.0-4.8); MEAN CELL VOLUME 71.5 FL (80.0-100.0); MEAN CORPUSCULAR HEMOGLOBIN 22.6 PG (27.0-34.0); MEAN CORPUSCULAR HGB CONC 31.6 % (32.0-36.0); MONO % 10.1 % (0.0-8.0); NEUT % 59.7 % (16.0-70.0); PLATELET COUNT 258 TH/MM3 (150-450); RED BLOOD COUNT 4.32 MIL/MM3 (4.00-5.30); RED CELL DISTRIBUTION WIDTH 14.7 % (11.6-17.2); WHITE BLOOD COUNT 11.4 TH/MM3 (4.0-11.0)
[2016-10-28 18:44] LABS: HEMO FLAGS AUTO DIFF
[2016-10-28 18:53] LABS: APTT (PATIENT) 30.3 SEC (24.3-30.1); INTERNATIONAL NORMALIZED RATIO 1.2 RATIO
[2016-10-28] MEDS ORDERED: SODIUM CHLOR 0.9% 1000 ML INJ 1,000 ML IV SCH ×2 (19:18→19:38)
[2016-10-28] MEDS ORDERED: MORPHINE SULFATE 4 MG/ML INJ IV PUSH PRN ×2 (19:30)
[2016-10-28] MEDS ORDERED: HEPARIN INJ 1,000 UNITS in SODIUM CHLORID 0.9% 500 ML INJ 500 ML IV PRN ×2 (19:30→19:45)
[2016-10-28] MEDS ORDERED: CATHFLO ACTIVASE INJ 10 MG in SODIUM CHLORID 0.9% 500 ML INJ 500 ML IV SCH ×2 (19:30→19:45)
[2016-10-28] MEDS ORDERED: ONDANSETRON HCL 4 MG/2 ML VIAL IV PRN (19:30)
--- NOTE | 2016-10-28 19:31 | PD.RAD ---
Post Procedure Progress Note Pre Procedure Diagnosis: (1) SVC (superior vena cava obstruction) (2) Uterine cancer (3) Acute superior vena cava thrombosis Post Procedure Diagnosis: (1) SVC (superior vena cava obstruction) (2) Uterine cancer (3) Acute superior vena cava thrombosis Procedure Date: Oct 28, 2016 Supervising Radiologist: Cosmo Burkett Proceduralist/Assist: Lani Flowers RT(R) Anesthesia: Local, Conscious Sedation Plan of Activity Patient to Unit: Critical Care Patient Condition: Good See PACS Report for procedural detail/treatment Vascular-Venous Procedure Procedure 1 Procedure(s): Thrombolysis, Venogram Access Access Site(s): Right Jugular Vein Sheath(s) Remaining: Right Jugular Vein Findings: svc occlusion/thrombosis Treament Area: SVC thrombolysis initiated Central Venous Access Device Procedure 1 Right Subclavian Central Line Placement triple lumen Lithuanian: 7 Additional Detail: 16cm central line Cosmo Burkett MD Oct 28, 2016 19:31
[2016-10-28] MEDS ORDERED: LORazepam 2 MG/ML VIAL IV PUSH PRN (19:45)
[2016-10-28 20:00] VITALS: BP 106/55; PULSE 72; RESP 21; TEMP 97.5; O2SAT 99
[2016-10-28] MEDS: SODIUM CHLORIDE 0.9% FLUSH 5 ML FLUSH FLUSH SCH (20:00)
[2016-10-28 20:20] LABS: OVALOCYTES 1+ (NORMAL)
[2016-10-28 20:21] LABS: SCAN/DIFF AUTO DIFF CONFIRMED; TARGET CELLS 1+ (NORMAL); TEARDROP RBCS 1+ (NORMAL)
[2016-10-28 20:56] VITALS: O2SAT 93
[2016-10-28 22:00] VITALS: PULSE 79
--- NOTE | 2016-10-28 23:18 | MB ---
cc: PENNY SANZ M.D. DEVERAS, RUBY ANNE E. M.D. DATE OF CONSULTATION 10/28/16 DATE OF 1945 DATE OF SERVICE October 28, [address] Penny Sanz CHIEF COMPLAINT Dr. Sanz requests a consultation for Ms. Elmore regarding superior vena cava syndrome requiring thrombolytic therapy. HISTORY OF PRESENT ILLNESS Mrs. Elmore is a 71-year-old woman well-known patient to Dr. Brionna Seals with a stage II B uterine papillary serous carcinoma status post robotic surgery and adjuvant systemic chemotherapy with Taxol and carboplatin. She has been disease-free with a normal CA-125. On October 18, 2016, she woke up with headache and facial swelling. She was mis-diagnosed as allergic reaction to Motrin. She was finally readmitted to the hospital and was found to have low density filling defect within the superior vena cava extending down to the aortocaval junction presumably representing super vena caval thrombus. There is flow through a small collateral channels in the neck. There is small bilateral pleural effusion. This was diagnosed in October 20, 2016 in her previous admission. She was recommended to have port removed. This was removed by Dr. Burkett. She was placed promptly on unfractionated heparin. The swelling of her face improved. She was switched to Xarelto upon discharge. She called the clinic a day prior to her presentation with increasing facial swelling. She presented to the clinic in the afternoon for followup hospital admission. She was found to have increasing facial swelling, periorbital edema, swelling of the neck, arms and near-syncopal episodes symptoms. She denies any headaches, no vision changes. She has no shortness of breath. She is anxious. She has had no bleeding related to Xarelto. She denies any urinary complaints. The rest of her review of systems is negative. Admission to the hospital was promptly coordinated through Dr. Figueroa. Case was called and discussed with Dr. Burkett who recommends thrombolytic therapy given the recent development of the superior vena cava clot at least at time a diagnosis was October 19. She only developed symptoms on October 18. There is a good likelihood of her responding to the thrombolytic therapy. PAST MEDICAL HISTORY 1. Uterine cancer as described above, 2. Hypertension, 3. 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 Microcytic anemia, 5. Hyperglycemia. FAMILY HISTORY Mother was on Coumadin that had history diabetes and hypertension. No other family history of cancer. SOCIAL HISTORY She is and retired. She denies any tobacco, alcohol or illicit drug use. PAST SURGICAL HISTORY 1. Port placement and removal 2. Colonoscopy 3. Robotic laparoscopic hysterectomy, bilateral salpingo-oophorectomy, bilateral pelvic adenectomy, periaortic lymph node lymphadenectomy, lysis of adhesions. PHYSICAL EXAMINATION VITAL SIGNS: Temperature 98.0, heart rate 85, respiratory rate 16, blood pressure 115/58, saturation 95%. GENERAL: Ms. Elmore os a well-developed, well-nourished, anxious-appearing woman. She is lying flat post her thrombolytic therapy. The right neck catheter is in place. She looks better and less swollen than the six hours earlier in clinic. HEENT: Her orbital edema and facial swelling has decreased. Her tovar ashen color is resolving. Her pupils are reactive to light and accommodation. Oropharynx is clear. NECK: Supple. LUNGS: Clear anteriorly. CARDIOVASCULAR: Normal rate, rhythm. ABDOMEN: Benign Extremities: Lower extremities with no edema. There is arm swelling which is improved on the left. There is some residual arm swelling on the right. Catheter is in the right upper chest wall. LABORATORY DATA Significant for a mild microcytic anemia and hemoglobin 9.8, white blood cell count of 11.4, platelet count of 258, ferritin 157 and renal function is normal glucose 156. ASSESSMENT/PLAN Mrs. Elmore is a 71-year-old woman with multiple medical problems diagnosed with uterine cancer in remission. Her course was complicated by superior vena cava syndrome from inferior vena cava clot associated with port. The nidus for the clot, I.e., the port has been removed. She however did not significantly improve with just anticoagulant therapy alone. She seems to have responded to unfractionated heparin during her hospitalization. Shortly after returning home with compliance with Xarelto she developed progressive symptoms and swelling culminating to her coming into unscheduled earlier visits at our outpatient clinic. She was responded to the thrombolytic therapy. She is being seen shortly after the procedure. She is tolerating it well. She has no episodes of bleeding. She has no headaches. Her family is supportive. She is anxious. Lorazepam is offered on a p.r.n. basis. She will be monitored closely. The orders from interventional radiology have been transcribed to the electronic medical record system. TPA continuous infusion with heparin to be administered as TPA somehow stopped. Fibrinogen will be checked per protocol. Monitor for bleeding. Her anemia requires no specific therapy at present. I am unable to exclude iron deficiency or thalassemia trait. I suspect the iron deficiency as she has had normal hemoglobin and MCV in the past. Her questions were answered to her satisfaction. Tamra Vanegas MD RAD/SA /7:56 PM /10:55 PM
[2016-10-29] VITALS (10 sets, daily range): BP systolic 120–158; BP diastolic 59–64; PULSE 66–97; RESP 12–18; TEMP 97.5–98.3; O2SAT 93–97
[2016-10-29 00:12] LABS: BLOOD, URINE NEG (NEG); COMMENT (UR) CATH-CULT NOT IND; CULTURE IF INDICATED CATH CULTURE NOT IND; GLUCOSE,URINE NEG (NEG); KETONE, URINE NEG (NEG); MUCUS URINE FEW /lpf (OCC); NITRITE,URINE NEG (NEG); URINE COLOR YELLOW (YELLW/STRAW)
[2016-10-29] MEDS: SODIUM CHLOR 0.9% 1000 ML INJ 1,000 ML IV SCH ×3 (00:26→21:00)
[2016-10-29 00:46] LABS: AUTOMATED NEUTROPHIL # 7.4 TH/MM3 (1.8-7.7); BASOPHIL % 0.2 % (0.0-2.0); EOSINOPHIL # 0.1 TH/MM3 (0-0.4); EOSINOPHIL % 0.7 % (0.0-4.0); HEMATOCRIT 28.8 % (35.0-46.0); LYMPH % 21.5 % (9.0-44.0); LYMPHOCYTE # 2.4 TH/MM3 (1.0-4.8); MEAN CELL VOLUME 70.8 FL (80.0-100.0); MEAN CORPUSCULAR HGB CONC 32.5 % (32.0-36.0); MONO % 11.3 % (0.0-8.0); NEUT % 66.3 % (16.0-70.0); PLATELET COUNT 248 TH/MM3 (150-450); RED BLOOD COUNT 4.07 MIL/MM3 (4.00-5.30); RED CELL DISTRIBUTION WIDTH 14.8 % (11.6-17.2); WHITE BLOOD COUNT 11.1 TH/MM3 (4.0-11.0)
[2016-10-29 00:49] LABS: HEMO FLAGS AUTO DIFF
[2016-10-29 01:34] LABS: APTT (PATIENT) 30.6 SEC (24.3-30.1)
[2016-10-29 02:09] LABS: OVALOCYTES 1+ (NORMAL); SCAN/DIFF AUTO DIFF CONFIRMED; TARGET CELLS 1+ (NORMAL)
--- NOTE | 2016-10-29 03:11 | PD.CONS ---
[facility] Service Critical Care Medicine Consult Requested By Radiology Service, Kwadwo Reason for Consult Assessment of SVC Syndrome Primary Care Physician Cammie Pride MD History of Present Illness 71 y/o woman with Stage II B uterine cancer has developed super vena cava thrombosis, possibly associated with previous port. The thrombus has been refractory to conservative treatment including NOAC Xarelto. Cavagram indicates upper body venous return detoured through the azygous system and clearly limited. She is symptomatic with extensive upper extremity edema and facial swelling. Undoubtedly she will have raised intracranial pressure. The elevated ICP becomes debilitating and efforts to recanalize the SVC should be attempted. She is presently receiving catheter directed lytic therapy. If not successful I recommend proceeding to mechanical thrombus extraction. Past Family Social History Allergies: Coded Allergies: No Known Allergies (Verified , 10/19/16) Physical Exam Vital Signs Vital Signs Date Time Temp Pulse Resp B/P Pulse Ox O2 Delivery O2 Flow Rate FiO2 10/29/16 02:00 81 10/29/16 00:00 98.0 72 12 120/59 95 10/29/16 00:00 72 10/28/16 22:00 79 10/28/16 20:56 93 10/28/16 20:00 97.5 72 21 106/55 99 10/28/16 20:00 72 10/28/16 17:53 95 21 10/28/16 16:00 98.0 85 16 115/58 95 Laboratory Laboratory Tests Test 10/28/16 10/28/16 10/29/16 18:00 20:00 00:00 White Blood Count 11.4 11.1 Red Blood Count 4.32 4.07 Hemoglobin 9.8 9.4 Hematocrit 30.9 28.8 Mean Corpuscular Volume 71.5 70.8 Mean Corpuscular Hemoglobin 22.6 23.0 Mean Corpuscular Hemoglobin 31.6 32.5 Concent Red Cell Distribution Width 14.7 14.8 Platelet Count 258 248 Mean Platelet Volume 8.1 8.0 Neutrophils (%) (Auto) 59.7 66.3 Lymphocytes (%) (Auto) 28.4 21.5 Monocytes (%) (Auto) 10.1 11.3 Eosinophils (%) (Auto) 1.1 0.7 Basophils (%) (Auto) 0.7 0.2 Neutrophils # (Auto) 6.8 7.4 Lymphocytes # (Auto) 3.2 2.4 Monocytes # (Auto) 1.1 1.3 Eosinophils # (Auto) 0.1 0.1 Basophils # (Auto) 0.1 0.0 CBC Comment AUTO DIFF AUTO DIFF Differential Comment AUTO DIFF AUTO DIFF CONFIRMED CONFIRMED Target Cells 1+ 1+ Tear Drop Cells 1+ Ovalocytes 1+ 1+ Keratocytes Prothrombin Time 13.0 Prothromb Time International 1.2 Ratio Activated Partial 30.3 30.6 Thromboplast Time Fibrinogen 304 298 Urine Color YELLOW Urine Turbidity CLEAR Urine pH 6.0 Urine Specific [place] 1.030 Urine Protein NEG Urine Glucose (UA) NEG Urine Ketones NEG Urine Occult Blood NEG Urine Nitrite NEG Urine Bilirubin NEG Urine Urobilinogen LESS THAN 2.0 Urine Leukocyte Esterase NEG Urine RBC 1 Urine WBC 1 Urine Mucus FEW Microscopic Urinalysis Comment CATH-CULT NOT IND Result Diagram: 10/29/16 0000 Mitchell Diaz MD Oct 29, 2016 03:11
[2016-10-29 06:35] LABS: AUTOMATED NEUTROPHIL # 8.4 TH/MM3 (1.8-7.7); BASOPHIL # 0.1 TH/MM3 (0-0.2); BASOPHIL % 0.6 % (0.0-2.0); EOSINOPHIL % 0.2 % (0.0-4.0); HEMATOCRIT 30.8 % (35.0-46.0); LYMPH % 18.2 % (9.0-44.0); LYMPHOCYTE # 2.2 TH/MM3 (1.0-4.8); MEAN CELL VOLUME 70.7 FL (80.0-100.0); MEAN CORPUSCULAR HEMOGLOBIN 22.3 PG (27.0-34.0); MEAN CORPUSCULAR HGB CONC 31.5 % (32.0-36.0); MONO % 10.7 % (0.0-8.0); NEUT % 70.3 % (16.0-70.0); PLATELET COUNT 253 TH/MM3 (150-450); RED BLOOD COUNT 4.36 MIL/MM3 (4.00-5.30); RED CELL DISTRIBUTION WIDTH 14.9 % (11.6-17.2)
[2016-10-29 06:44] LABS: BICARBONATE 28.1 MEQ/L (21.0-32.0); POTASSIUM 3.5 MEQ/L (3.5-5.1)
[2016-10-29 07:02] LABS: HEMO FLAGS AUTO DIFF
[2016-10-29 07:19] LABS: APTT (PATIENT) 29.6 SEC (24.3-30.1)
[2016-10-29] MEDS: LOSARTAN 50 MG TAB PO SCH (08:43)
[2016-10-29] MEDS: HYDROCHLOROTHIAZIDE 12.5 MG CAP PO SCH (08:43)
[2016-10-29] MEDS: SODIUM CHLORIDE 0.9% FLUSH 5 ML FLUSH FLUSH SCH ×2 (09:00→21:00)
[2016-10-29 09:57] LABS: SCAN/DIFF AUTO DIFF CONFIRMED; TARGET CELLS 1+ (NORMAL)
--- NOTE | 2016-10-29 10:25 | PD.RAD ---
Post Procedure Progress Note Pre Procedure Diagnosis: (1) Acute superior vena cava thrombosis (2) SVC (superior vena cava obstruction) (3) Uterine cancer Post Procedure Diagnosis: (1) Acute superior vena cava thrombosis (2) SVC (superior vena cava obstruction) (3) Uterine cancer Procedure Date: Oct 29, 2016 Supervising Radiologist: Cosmo Burkett Proceduralist/Assist: Lani Flowers RT(R) Anesthesia: Local, Conscious Sedation Plan of Activity Patient to Unit: Critical Care Patient Condition: Fair See PACS Report for procedural detail/treatment Vascular-Venous Procedure Procedure 1 Procedure(s): Venogram Findings: unchanged low SVC occlusion despite 14 hrs of TPA Plan Suction thrombectomy to be considered Cosmo Burkett MD Oct 29, 2016 10:25
[2016-10-29] MEDS ORDERED: IOHEXOL 350 MG/ML 50 ML BTL (for RAD DIAG) IV ONE ×2 (10:27→19:20)
[2016-10-29] MEDS ORDERED: MINERAL OIL 10 ML VIAL OTHER ONE (11:15)
--- NOTE | 2016-10-29 12:20 | PD.ONC.PN ---
Subjective Subjective Remarks Afebrile overnight. Patient is anxious but otherwise without complaint. No bleeding. No pain. Objective Data Date Time Temp Pulse Resp B/P Pulse Ox O2 Delivery O2 Flow Rate FiO2 10/29/16 08:00 66 10/29/16 07:23 94 21 10/29/16 06:00 79 10/29/16 04:00 72 10/29/16 04:00 98.2 72 12 127/59 93 10/29/16 02:00 81 10/29/16 00:00 98.0 72 12 120/59 95 10/29/16 00:00 72 10/28/16 22:00 79 10/28/16 20:56 93 10/28/16 20:00 97.5 72 21 106/55 99 10/28/16 20:00 72 10/28/16 17:53 95 21 10/28/16 16:00 98.0 85 16 115/58 95 Result Diagram: 10/29/16 0600 10/29/16 0600 Laboratory Results Laboratory Tests Test 10/28/16 10/28/16 10/29/16 10/29/16 18:00 20:00 00:00 06:00 White Blood Count 11.4 TH/MM3 11.1 TH/MM3 12.0 TH/MM3 Red Blood Count 4.32 MIL/MM3 4.07 MIL/MM3 4.36 MIL/MM3 Hemoglobin 9.8 GM/DL 9.4 GM/DL 9.7 GM/DL Hematocrit 30.9 % 28.8 % 30.8 % Mean Corpuscular Volume 71.5 FL 70.8 FL 70.7 FL Mean Corpuscular Hemoglobin 22.6 PG 23.0 PG 22.3 PG Mean Corpuscular Hemoglobin 31.6 % 32.5 % 31.5 % Concent Red Cell Distribution Width 14.7 % 14.8 % 14.9 % Platelet Count 258 TH/MM3 248 TH/MM3 253 TH/MM3 Mean Platelet Volume 8.1 FL 8.0 FL 8.0 FL Neutrophils (%) (Auto) 59.7 % 66.3 % 70.3 % Lymphocytes (%) (Auto) 28.4 % 21.5 % 18.2 % Monocytes (%) (Auto) 10.1 % 11.3 % 10.7 % Eosinophils (%) (Auto) 1.1 % 0.7 % 0.2 % Basophils (%) (Auto) 0.7 % 0.2 % 0.6 % Neutrophils # (Auto) 6.8 TH/MM3 7.4 TH/MM3 8.4 TH/MM3 Lymphocytes # (Auto) 3.2 TH/MM3 2.4 TH/MM3 2.2 TH/MM3 Monocytes # (Auto) 1.1 TH/MM3 1.3 TH/MM3 1.3 TH/MM3 Eosinophils # (Auto) 0.1 TH/MM3 0.1 TH/MM3 0.0 TH/MM3 Basophils # (Auto) 0.1 TH/MM3 0.0 TH/MM3 0.1 TH/MM3 CBC Comment AUTO DIFF AUTO DIFF AUTO DIFF Differential Comment AUTO DIFF AUTO DIFF AUTO DIFF CONFIRMED CONFIRMED CONFIRMED Target Cells 1+ 1+ 1+ Tear Drop Cells 1+ Ovalocytes 1+ 1+ Keratocytes Prothrombin Time 13.0 SEC Prothromb Time International 1.2 RATIO Ratio Activated Partial 30.3 SEC 30.6 SEC 29.6 SEC Thromboplast Time Fibrinogen 304 mg/dL 298 mg/dL 308 mg/dL Urine Color YELLOW Urine Turbidity CLEAR Urine pH 6.0 Urine Specific [place] 1.030 Urine Protein NEG mg/dL Urine Glucose (UA) NEG mg/dL Urine Ketones NEG mg/dL Urine Occult Blood NEG Urine Nitrite NEG Urine Bilirubin NEG Urine Urobilinogen LESS THAN 2.0 MG/DL Urine Leukocyte Esterase NEG Urine RBC 1 /hpf Urine WBC 1 /hpf Urine Mucus FEW /lpf Microscopic Urinalysis Comment CATH-CULT NOT IND Sodium Level 140 MEQ/L Potassium Level 3.5 MEQ/L Chloride Level 104 MEQ/L Carbon Dioxide Level 28.1 MEQ/L Anion Gap 8 MEQ/L Blood Urea Nitrogen 10 MG/DL Creatinine 0.58 MG/DL Estimat Glomerular Filtration 103 ML/MIN Rate Random Glucose 94 MG/DL Calcium Level 8.0 MG/DL Administered Medications Medications (Trade) Dose Ordered Sig/[place] Route PRN Reason Start Time Stop Time Status Last Admin Dose Admin Sodium Chloride (NS 1000 ml Inj) 1,000 ml @ 100 mls/hr Q10H IV 10/28/16 15:00 10/29/16 12:06 IV Flush (NS Flush) 2 ml BID FLUSH 10/28/16 21:00 10/29/16 09:00 Acetaminophen/ Hydrocodone Bitart ([place] 5-325 Mg) 1 tab Q6H PRN PO pain 5 -10 10/28/16 17:30 10/29/16 06:10 Losartan Potassium (Cozaar) 50 mg DAILY PO 10/29/16 09:00 10/29/16 08:43 Hydrochlorothiazide (Microzide) 12.5 mg DAILY PO 10/29/16 09:00 10/29/16 08:43 Objective Remarks GENERAL: Middle aged female, lying in bed in nad. Upper extremity and facial edema noted. SKIN: Warm and dry. HEAD: Normocephalic. EYES: No injection or drainage. NECK: Supple, trachea midline. CARDIOVASCULAR: Regular rate and rhythm RESPIRATORY: Breath sounds equal bilaterally. No accessory muscle use. GASTROINTESTINAL: Abdomen soft, non-tender, nondistended. EXTREMITIES: No cyanosis NEUROLOGICAL: awake and alert, normal speech. Assessment/Plan Assessment 71y/o female with superior vena cava syndrome requiring thrombolytic therapy. 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 has been disease- free with a normal CA-125. Plan 1. SVC syndrome: repeat venogram showed unchanged SVC occlusion despite TPA. patient to go for suction thrombectomy this afternoon 2. monitor CBC 3. supportive care Yarelis Elmore Oct 29, 2016 12:20
[2016-10-29] MEDS ORDERED: PHENYLEPH/NS 1000 MCG/10 ML SYR IV ONE (13:36)
[2016-10-29] MEDS ORDERED: PROPOFOL 200 MG/20 ML AMP IV ONE (13:36)
[2016-10-29] MEDS ORDERED: LACTATED RINGER'S 1000 ML INJ 2,000 ML IV ONE (13:36)
--- NOTE | 2016-10-29 13:58 | RADRPT ---
EXAM DATE/TIME: 10/28/2016 17:15 [facility] COMPARISON: No previous studies available for comparison. 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 MEDICAL HISTORY : Uterine cancer, HTN, SVC syndrome, Microcytic anemia, Mild hyperglycemia SURGICAL HISTORY : Port placement, Port removal, Hysterectomy, Bilateral salpingo-oophorectomy, Bilateral pelvic lymphad enectomy, Periaortic lymphadenectomy, Lysis of adhesions ENCOUNTER: Initial ACUITY: 2 weeks PAIN SCORE: 0/10 FLUORO TIME: 2.8 minutes ACCESS SITE: Right Internal jugular vein SEDATION TIME: 30 minutes CONTRAST: 1.) 60 cc Omnipaque (iohexol) 350 MEDICATION(S): 1.) 1 mg midazolam (Versed) IV 2.) 50 mcg fentanyl (Sublimaze) IV DEVICE(S): 1.) Superior vena cava 4F [id number] Infusion catheter PROCEDURE : 1. Ultrasound-guided puncture of the right internal jugular vein. 2. Conscious sedation with continuous EKG and Oximetry monitoring. 3. inferior vena caval catheterization from right jugular approach 4. Angiography of the superior vena cava 5. infusion for thrombolysis The risks, benefits and alternatives to the procedure were explained and verbal and written consent w as obtained. The site was prepped in sterile fashion. Full sterile technique was used, including ca p, mask, sterile gloves and gown and a large sterile sheet. Hand hygiene and 2% chlorhexidine and/or betadine/alcohol prep was utilized per protocol for cutaneous antisepsis. The skin and subcutaneous tissues were infiltrated with local anesthetic solution. With ultrasound and fluoroscopic guidance the right internal jugular vein was punctured and a 5 Frenc h vascular sheath was placed. Angiography of the superior vena cava was performed revealing total occlusion of the low SVC with lonnie w of injected contrast into the azygos system. An angled Glidewire was manipulated with little diffic ulty through the occlusion and down into the inferior vena cava. The sheath was then gently advanced through the occlusion down into the right atrium. Pull back venography was performed to define the oc clusion. Sheath exchange was performed with placement of a short 6 American sheath which was secured at the neck with silk suture and connected to infusion. A 10 cm infusion length thrombolytic catheter w as introduced and positioned with sideholes encompassing the occlusion and the tip extending into the mid right atrium. The sheath and infusion catheter were secured. Thrombolysis was initiated. Conscious sedation was performed with the prescribed dosages and duration as above. EKG and oximetry remained stable throughout the procedure. The patient was transferred into this area and in satisfac tory stable condition. FINDINGS: Total occlusion of the low superior vena cava terminating at the upper right atrium. There is abundan t flow through the azygous system. The occlusion was traversed and thrombolytic catheter was placed. CONCLUSION: Total occlusion of the low superior vena cava was traversed and thrombolysis was initiated. We will f ollow the venographic appearance in the morning. Cosmo Burkett MD on October 29, 2016 at 13:50 Board Certified Radiologist. This report was verified electronically.
--- NOTE | 2016-10-29 14:04 | RADRPT ---
EXAM DATE/TIME: 10/28/2016 17:15 [facility] COMPARISON: No previous studies available for comparison. INDICATIONS : Patient with history of SVC syndrome in need of central line placement. MEDICAL HISTORY : Uterine cancer, HTN, SVC syndrome, Microcytic anemia, Mild hyperglycemia SURGICAL HISTORY : Port placement, Port removal, Hysterectomy, Bilateral salpingo-oophorectomy, Bilateral pelvic lymphad enectomy, Periaortic lymphadenectomy, Lysis of adhesions ENCOUNTER: Initial ACUITY: 2 weeks PAIN SCORE: 0/10 FLUORO TIME: 2.8 minutes ACCESS: Right cephalic vein into SVC DEVICE(S): 1.) 7 Kiswahili triple lumen 16 cm Arrow central line PROCEDURE : 1. Ultrasound guided venipuncture. 2. Fluoroscopic guidance. 3. Central line placement. The risks, benefits and alternatives to the procedure were explained and verbal and written consent w as obtained. The site was prepped in sterile fashion. Full sterile technique was used, including ca p, mask, sterile gloves and gown and a large sterile sheet. Hand hygiene and 2% chlorhexidine prep w as utilized per protocol for cutaneous antisepsis with appropriate dry time for site. The skin and subcutaneous tissues were infiltrated with local anesthetic solution. A suitable site a raphael the vein was selected with ultrasound and fluoroscopic guidance. A small incision was made. Th e vein was accessed under direct ultrasound visualization using the micropuncture technique. The chang ropuncture set was exchanged for a 0.035 wire. The tract was dilated. The catheter was advanced int o position under direct fluoroscopic visualization. The catheter was positioned so as to have its tip above the level of superior vena caval occlusion. The catheter was fixed in place with suture and a sterile dressing was applied. The patient tolerated the procedure well and there were no complications. CONCLUSION: Uncomplicated line placement as above. Cosmo Burkett MD on October 29, 2016 at 14:01 Board Certified Radiologist. This report was verified electronically.
--- NOTE | 2016-10-29 14:07 | RADRPT ---
EXAM DATE/TIME: 10/29/2016 08:57 [facility] COMPARISON: No previous studies available for comparison. INDICATIONS : Patient with SVC syndrome in need of venogram post thrombolytic infusion. MEDICAL HISTORY : Uterine cancer, HTN, SVC syndrome, Microcytic anemia, Mild hyperglycemia SURGICAL HISTORY : Port placement, Port removal, Hysterectomy, Bilateral salpingo-oophorectomy, Bilateral pelvic lymphad enectomy, Periaortic lymphadenectomy, Lysis of adhesions ENCOUNTER: Subsequent ACUITY: 2 weeks PAIN SCORE: 5/10 Back FLUORO TIME: 1.5 minutes ACCESS SITE: SEDATION TIME: 30 minutes CONTRAST: 1.) 15 cc Omnipaque (iohexol) 350 MEDICATION(S): 1.) 50 mcg fentanyl (Sublimaze) IV PROCEDURE: 1. Followup thrombolysis 2. Conscious sedation with continuous EKG and oximetry monitoring. Following TPA infusion the patient returned to the angiography suite for reevaluation. The right jugular sheath and infusion catheter were prepped with surrounding skin is a sterile field. Under direct fluoroscopic guidance, an angled Glidewire was manipulated through the infusion cathete r down into the inferior vena cava to maintain stable access. The infusion catheter was removed intac t. The right neck sheath was injected with digital subtraction imaging performed over the chest. The evaluation reveals no significant change in the appearance of low SVC occlusion with collateral flow of injected contrast through the azygos system. A 4 Northern Irish Berenstein catheter was introduced over the guidewire and manipulated down into the inferi or vena cava. This catheter was connected to infusion, secured in place and the patient was returned to the test. In stable condition. The patient tolerated the procedure well and there were no complications. Conscious sedation was perf ormed with prescribed dosages and duration as above. EKG and oximetry remained stable throughout the procedure. CONCLUSION: No significant interval change in the low SVC occlusion despite overnight thrombolytic therapy. The c onfiguration does appear amenable to suction thrombectomy utilizing Angiovac device which is recommen ded at this point. Cosmo Burkett MD on October 29, 2016 at 14:03 Board Certified Radiologist. This report was verified electronically.
--- NOTE | 2016-10-29 14:34 | MB ---
cc: HAROON CAMACHO MD DATE OF CONSULTATION: 10/29/2016 at 11:30 a.m. REFERRING PHYSICIAN: Dr. Cosmo Burkett, radiology. Dr. Tamra Vanegas, Oncology. REASON FOR CONSULTATION: Cardiac surgery back up for superior vena cava syndrome therapy. HISTORY Mrs. Elmore is a very pleasant 71-year-old female, patient of Dr. Brionna Seals with a known history of uterine cancer status post previous robotic surgery and adjuvant chemotherapy, who now presented with a 2-week history of progressive headache, facial swelling upper body swelling. She has been admitted and further workup is done including a recent chest CT which is demonstrated a totally occluded SVC with clot and no mass effect or mediastinal adenopathy. Presumably this is from her previous mediport indwelling catheter in place, which was removed. She has received antiplatelet therapy and overnight has received thrombolytic therapy. At this point the plans are that if the thrombolytic therapy is not successful in recanalizing the SVC, and alleviating her swelling and symptoms, then to proceed with catheter-based extraction of the clot by intervention radiology. I am being consulted for surgical backup therapy. At the present time she is in the ICU receiving anticoagulation therapy, and is hemodynamically stable. She does have severe swelling of her face and both arms although she reports mild improvement in her left arm swelling over night. PAST MEDICAL HISTORY: 1. Past medical history is significant for uterine cancer as described above. 2. Hypertension. 3. SVC syndrome, as described above. 4. Microcytic anemia. 5. hyperglycemia. PAST SURGICAL HISTORY 1. Remarkable for robotic laparoscopic hysterectomy. 2. Port placement and removal. 3. Colonoscopy. ALLERGIES The patient reports NO KNOWN DRUG ALLERGIES. MEDICATIONS ON ADMISSION Listed in the H&P. SOCIAL HISTORY Denies any history of smoking, alcohol use or illicit drug use. REVIEW OF SYSTEMS Review of systems as above. All other parameters negative. PHYSICAL EXAMINATION: VITAL SIGNS: Blood pressure is 127/59 with a heart rate of 81 which is regular, respiratory is 18, she is afebrile. HEAD, EYES, EARS, NOSE, AND THROAT: Normocephalic, atraumatic. Pupils are reactive. Extraocular muscles intact. No cervical lymphadenopathy or carotid bruits or JVD. She does have facial swelling and bilateral upper extremity swelling. She has a right trans jugular and right subclavicular catheters in place. CARDIOVASCULAR SYSTEM: Regular rate and rhythm. Normal S1-S2 without gallops, rubs or murmurs. LUNGS: Clear to auscultation bilaterally with good exchange. ABDOMEN: Soft, nontender, nondistended normal bowel sounds, no hepatosplenomegaly. EXTREMITIES: Bilateral lower extremities are intact without cyanosis, edema, no venous varicosities. She does have swelling of the upper extremities bilaterally more prominent on the right side. NEUROLOGIC: Intact with no focal deficits. IMPRESSION: 1. Uterine cancer, status post resection and chemotherapy 2. Hypertension. 3. superior vena cava syndrome. 4. Hyperglycemia. 5. Anemia. PLAN The clinical findings were discussed to detail with the patient and her son today. Based on the plan is to proceed with reevaluation of the SVC with a cavogram by Dr. Burkett. If there is no recanalization of the SVC following 24 hours of thrombolytic therapy, then the plan is to proceed to the operating room with catheter-based extraction using the Angiovac device. We will be backup for this procedure. It is important that the family and the patient realize that should she require a median sternotomy if there are any complications from the catheter of this procedure, then her chances of survival are very small given the fact that she is on thrombolytic therapy as well as antiplatelet therapy. The surgical procedure will be extremely high risk with a very likely chance of not surviving it. This was related to the patient and family and they are in agreement. We will plan to be on back up for the described procedure as dictated by operating room availability. Haroon Jay /11:42 AM /2:18 PM [facility]
[2016-10-29] MEDS ORDERED: HEPARIN SODIUM - SQ 10,000 UNITS/ML VIAL ONE ×2 (15:36→18:40)
[2016-10-29] MEDS ORDERED: HEPARIN SODIUM - IV 10,000 UNITS/10 ML VIAL ONE ×4 (15:36→18:39)
[2016-10-29] MEDS ORDERED: SODIUM CHLOR 0.9% 1000 ML INJ 1,000 ML IV SCH (18:50)
[2016-10-29] MEDS ORDERED: HEPARIN-D5W INJ 250 ML IV SCH (19:00)
[2016-10-29] MEDS ORDERED: fentaNYL CITRATE 250 MCG/5 ML AMP ONE (19:09)
[2016-10-29] MEDS ORDERED: MIDAZOLAM HCL 2 MG/2 ML VIAL ONE (19:09)
[2016-10-29] MEDS ORDERED: RESP: ALBUTEROL 2.5 MG/3 ML NEB (SCH) ONE (19:18)
[2016-10-29] MEDS ORDERED: DO NOT ADM ANY ANTICOAGULANT DRUGS XX PRN (19:30)
--- NOTE | 2016-10-29 19:40 | PD.RAD ---
Post Procedure Progress Note Pre Procedure Diagnosis: (1) Acute superior vena cava thrombosis (2) SVC (superior vena cava obstruction) (3) Uterine cancer Post Procedure Diagnosis: (1) Acute superior vena cava thrombosis (2) SVC (superior vena cava obstruction) (3) Uterine cancer Procedure Date: Oct 29, 2016 Supervising Radiologist: Cosmo Burkett Proceduralist/Assist: Lani Flowers, RT(R), Emir Garcia RT(R)() Anesthesia: General Plan of Activity Patient to Unit: PACU Patient Condition: Good See PACS Report for procedural detail/treatment Vascular-Venous Procedure Procedure 1 Procedure Site: Thoracic Procedure(s): Embolectomy Access Access Site(s): Right Femoral Vein, Right Jugular Vein, Left Femoral Vein Closure Site(s): Right vascular closure device, Left vascular closure device Findings: mostly chronic thrombus Treament Area: SVC suction embolectomy with Angiovac device Cosmo Burkett MD Oct 29, 2016 19:40
[2016-10-29 19:42] LABS: HEMATOCRIT 30.3 % (35.0-46.0); MEAN CELL VOLUME 71.9 FL (80.0-100.0); MEAN CORPUSCULAR HEMOGLOBIN 22.8 PG (27.0-34.0); MEAN CORPUSCULAR HGB CONC 31.8 % (32.0-36.0); PLATELET COUNT 196 TH/MM3 (150-450); RED BLOOD COUNT 4.21 MIL/MM3 (4.00-5.30); RED CELL DISTRIBUTION WIDTH 15.2 % (11.6-17.2); WHITE BLOOD COUNT 19.4 TH/MM3 (4.0-11.0)
[2016-10-29 19:44] LABS: REVIEW FLAG FINAL
[2016-10-29 20:14] LABS: INTERNATIONAL NORMALIZED RATIO 1.2 RATIO; PROTHROMBIN TIME - PATIENT 13.1 SEC (9.8-11.6)
--- NOTE | 2016-10-29 20:27 | RADRPT ---
EXAM DATE/TIME: 10/29/2016 15:38 [facility] COMPARISON: None. INDICATIONS : Patient with SVC syndrome in need of venogram possible interventions. MEDICAL HISTORY : Uterine cancer, HTN, SVC syndrome, Microcytic anemia, Mild hyperglycemia SURGICAL HISTORY : Port placement, Port removal, Hysterectomy, Bilateral salpingo-oophorectomy, Bilateral pelvic lymphad enectomy, Periaortic lymphadenectomy, Lysis of adhesions ENCOUNTER: Subsequent ACUITY: 2 weeks PAIN SCORE: 0/10 FLUORO TIME: minutes ACCESS SITE: Bilateral Femoral veins CONTRAST: 1.) 150 cc Omnipaque (iohexol) 350 Intra-procedural antibiotics were given as prescribed above. DEVICE(S): 1.) Angiovac Circuit 2.) 22F Angiovac Cannula 3.) SVC 12 X2mmx 75cm [employer] balloon 4.) Bilateral common femoral vein Perclose x4 Anesthesia and pain control was provided by the Anesthesia department. PROCEDURE : 1. Ultrasound-guided puncture of the bilateral common femoral vein access site. 2. Conscious sedation with continuous EKG and Oximetry monitoring. 3. nonselective left vein iliac catheterization 4. catheterization of the superior vena cava from a right femoral vein approach 5. bilateral iliac venography and inferior vena cavography 6. Superior vena caval mechanical and suction thrombectomy 7. Bilateral common femoral venotomy closure with ProGlide suture devices The patient was brought to the endovascular OR and placed supine. General endotracheal anesthesia was administered by department of anesthesia representatives. The right neck sheath and catheter is runn ing skin were prepped as a sterile field as were the chest, abdomen and groin regions bilaterally. Un starr direct ultrasound guidance, the common femoral veins were accessed with micropuncture technique a nd ProGlide sutures were deployed on both sides using the preclose technique with placement of a pair of sutures in each common femoral vein. The ProGlide sutures were clamped and set aside in the steri le field. 8 Kazakh sheaths were introduced in bilateral iliac venography and inferior cavography was performed. On the left, a 20 Kazakh perfusion return circulation sheath was introduced and positioned in the common iliac. The sheath was secured with silk suture and connected to the perfusion circuit. Next, a 26 Kazakh Cook dry seal sheath was introduced at the right groin and manipulated into the low IVC. The Angiovac cannula was introduced and manipulated into the hepatic IVC and the catheter was a ctivated and connected to the perfusion circuit. Attention was then turned to the right jugular access. A stiff angled Glidewire was introduced throug h the Berenstein catheter positioned in the IVC. The jugular sheath was upsized to 8 Kazakh. A Glidew yonatan was manipulated without difficulty into the Angiovac cannula. The Angiovac cannula tip was then flared with inflation of the tip balloon. The cannula was taken gen tly up into the right atrium where upon there was return of some debris into the circuit. Utilizing r oad mapping guidance, the catheter was further manipulated up to the atrial caval junction at which p oint blood return ceased and we knew that we are engaged in the SVC thrombus. I was unable to advance the Angiovac catheter into the thrombus and therefore we introduced a 12 mm x 2 cm angioplasty ballo on and inflated the balloon in the IVC above the level of the occlusion. The balloon was used push do wn against the top of the Angiovac catheter to force clot into the catheter tip. Followup venography revealed reestablishment of a marrow flow channel through the occlusion. This process was repeated se veral times with return of multiple fibrous fragments of varying sizes in addition to some recent meeta t. Completion venography was performed. The Angiovac catheter, and groin sheaths and the right neck larsen th were removed. The femoral venotomy sites were closed with the ProGlide sutures without difficulty. The patient tolerated the procedure well and was stable throughout. She was taken to the anesthesia recovery area in stable condition. FINDINGS: Largely chronic appearing white fibrous rubbery clot was gathered from suction thrombectomy of the SV C as described in detail above. We were able to achieve about 50% diameter recanalization of the occl uded level. Normal directional flow was reestablished with the diminished flow into the azygous syste m. CONCLUSION: Partial recanalization of the superior vena cava as described in detail above. I will have the patien t remain on IV heparin pending a decision regarding oral anticoagulation going forward. Should the pa tient have persistent or recurrent symptoms, the only remaining endovascular option would be stent pl acement. Cosmo Burkett MD Board Certified Radiologist. This report was verified electronically.
[2016-10-30] VITALS (14 sets, daily range): BP systolic 105–122; BP diastolic 48–53; PULSE 75–96; RESP 16–18; TEMP 98.2–98.5; O2SAT 93–99
[2016-10-30] MEDS ORDERED: HEPARIN SODIUM - IV 10,000 UNITS/10 ML VIAL IV PRN ×2 (01:00)
[2016-10-30 02:42] LABS: APTT (PATIENT) 58.8 SEC (24.3-30.1)
[2016-10-30] MEDS: SODIUM CHLOR 0.9% 1000 ML INJ 1,000 ML IV SCH ×2 (07:00→17:00)
--- NOTE | 2016-10-30 07:49 | HHI.CCPN ---
Subjective Remarks/Hospital Course 71 y/o woman with Stage II B uterine cancer has developed super vena cava thrombosis, possibly associated with previous port. Patient admitte with neck/ upper chest, upper extremity swelling consistent with SVC syndrome. Patient has been on Xarelto and thrombus has been refractory to conservative treatment including Xarelto. Cavagram indicates upper body venous return detoured through the azygous system and clearly limited. She is symptomatic with extensive upper extremity edema and facial swelling. Undoubtedly she will have raised intracranial pressure. The elevated ICP becomes debilitating and efforts to recanalize the SVC should be attempted. She is presently receiving catheter directed lytic therapy. If not successful recommend proceeding to mechanical thrombus extraction. 10/30/16: SVC suction embolectomy with Angiovac device by Dr. Victoria on . Clinically improving with improved swelling of neck and upper extremities. Receiving IV heparin. Catheter directed TPA completed yesterday about 1 pm Objective Vital Signs Date Time Temp Pulse Resp B/P Pulse Ox O2 Delivery O2 Flow Rate FiO2 10/30/16 07:13 99 Nasal Cannula 1.00 10/29/16 21:00 97.6 96 18 158/63 10/29/16 07:23 21 Intake and Output 10/29/16 10/29/16 10/30/16 08:00 16:00 00:00 Intake Total 1045 ml 1072 ml 1700 ml Output Total 400 ml 750 ml 4000 ml Balance 645 ml 322 ml -2300 ml Result Diagram: 10/29/16 1930 10/29/16 0600 Objective Remarks GENERAL: This is a well-nourished, well-developed patient, in no apparent distress. SKIN: Subjectively improved Upper extremity Neck, upper chest edema. HEAD: Atraumatic. Normocephalic. No temporal or scalp tenderness. EYES: Pupils equal round and reactive. No injection or drainage. NECK: Trachea midline. No tense swelling, subjective improvement of neck edema CARDIOVASCULAR: Regular rate and rhythm without murmurs, gallops, or rubs. No JVD. RESPIRATORY: Clear to auscultation. Breath sounds equal bilaterally. No wheezes , rales, or rhonchi. GASTROINTESTINAL: Abdomen soft, non-tender, nondistended. No guarding. MUSCULOSKELETAL: Extremities without clubbing, cyanosis, or edema. NEUROLOGICAL: Awake and alert. No focal neurological deficits. Normal speech. A/P Assessment and Plan ASSESMENT: SVC syndrome Port-related SVC thrombus Uterine cancer HTN (hypertension) Plan - SVC suction embolectomy with Angiovac device by Dr. Victoria on 10/29/16. - Clinically improving with improved swelling of neck and upper extremities. - Continue IV heparin. Catheter directed TPA completed yesterday about 1 pm - Port was removed during previous admission and patient was discharged home on Xarelto based on her preference. - Dr. Vanegas following - Uterine cancer stage IIIB, s/p robotic surgery, chemotherapy Dr. Ventura. - Hypertension. Continue Losartan, HCTZ. - Continue SCDs and IV heparin - Full code Discussed with patient. [facility] to assume care today, discussed with Puja Merritt, [facility] coordinator. We'll follow as needed Suma Wilburn MD Oct 30, 2016 07:49
[2016-10-30] MEDS: SODIUM CHLORIDE 0.9% FLUSH 5 ML FLUSH FLUSH SCH ×2 (09:00→21:00)
[2016-10-30] MEDS: LOSARTAN 50 MG TAB PO SCH (09:52)
[2016-10-30] MEDS: HYDROCHLOROTHIAZIDE 12.5 MG CAP PO SCH (09:52)
[2016-10-30 10:09] LABS: HEMATOCRIT 27.1 % (35.0-46.0); MEAN CELL VOLUME 71.3 FL (80.0-100.0); MEAN CORPUSCULAR HEMOGLOBIN 22.9 PG (27.0-34.0); MEAN CORPUSCULAR HGB CONC 32.2 % (32.0-36.0); PLATELET COUNT 197 TH/MM3 (150-450); RED CELL DISTRIBUTION WIDTH 14.7 % (11.6-17.2); WHITE BLOOD COUNT 19.6 TH/MM3 (4.0-11.0)
[2016-10-30 10:22] LABS: APTT (PATIENT) 81.6 SEC (24.3-30.1)
--- NOTE | 2016-10-30 11:11 | PD.ONC.PN ---
Subjective Subjective Remarks Afebrile overnight. Patient resting comfortably. She had suction thrombectomy yesterday and states she feels well today, but has a sore throat. No bleeding. No overnight events per nursing staff. Objective Data Date Time Temp Pulse Resp B/P Pulse Ox O2 Delivery O2 Flow Rate FiO2 10/30/16 08:00 76 10/30/16 07:30 77 10/30/16 07:30 16 10/30/16 07:13 99 Nasal Cannula 1.00 10/29/16 21:00 97.6 96 18 158/63 97 10/29/16 21:00 97 10/29/16 20:15 101 16 98 Nasal Cannula 3 10/29/16 20:00 98.1 99 16 159/73 99 Nasal Cannula 3 10/29/16 19:45 97.0 98 16 149/80 99 Nasal Cannula 4 10/29/16 19:30 110 16 159/74 100 Nasal Cannula 4 10/29/16 19:15 91 16 160/76 99 Simple Mask 10 10/29/16 19:01 96.2 100 14 162/73 97 Simple Mask 10 10/29/16 14:00 81 10/29/16 12:00 98.3 73 15 141/64 97 10/29/16 12:00 73 Result Diagram: 10/30/16 0915 10/29/16 0600 Laboratory Results Laboratory Tests Test 10/29/16 10/30/16 10/30/16 19:30 01:30 09:15 White Blood Count 19.4 TH/MM3 19.6 TH/MM3 Red Blood Count 4.21 MIL/MM3 3.80 MIL/MM3 Hemoglobin 9.6 GM/DL 8.7 GM/DL Hematocrit 30.3 % 27.1 % Mean Corpuscular Volume 71.9 FL 71.3 FL Mean Corpuscular Hemoglobin 22.8 PG 22.9 PG Mean Corpuscular Hemoglobin 31.8 % 32.2 % Concent Red Cell Distribution Width 15.2 % 14.7 % Platelet Count 196 TH/MM3 197 TH/MM3 Mean Platelet Volume 7.6 FL 8.1 FL Prothrombin Time 13.1 SEC Prothromb Time International 1.2 RATIO Ratio Activated Partial 162.0 SEC 58.8 SEC 81.6 SEC Thromboplast Time Fibrinogen 333 mg/dL Administered Medications Medications (Trade) Dose Ordered Sig/[place] Route PRN Reason Start Time Stop Time Status Last Admin Dose Admin Sodium Chloride (NS 1000 ml Inj) 1,000 ml @ 100 mls/hr Q10H IV 10/28/16 15:00 10/29/16 12:06 IV Flush (NS Flush) 2 ml BID FLUSH 10/28/16 21:00 10/29/16 09:00 Acetaminophen (Tylenol) 650 mg Q4H PRN PO FEVER, HEADACHE, PAIN 1-4 10/28/16 14:15 10/30/16 06:28 Acetaminophen/ Hydrocodone Bitart ([place] 5-325 Mg) 1 tab Q6H PRN PO pain 5 -10 10/28/16 17:30 10/29/16 06:10 Losartan Potassium (Cozaar) 50 mg DAILY PO 10/29/16 09:00 10/30/16 09:52 Hydrochlorothiazide 12.5 mg 12.5 mg DAILY PO 10/29/16 09:00 10/30/16 09:52 Heparin Sodium/ Dextrose (Heparin-D5W Inj) 250 ml @ 0 mls/hr TITRATE IV 10/29/16 19:00 10/29/16 21:13 Objective Remarks GENERAL: Middle aged female, sitting up in bed. Appears bright and well. Daughter at bedside. SKIN: Warm and dry. no bleeding from lines. HEAD: Normocephalic. EYES: No injection or drainage. NECK: Supple, trachea midline. CARDIOVASCULAR: Regular rate and rhythm RESPIRATORY: Breath sounds equal bilaterally. No accessory muscle use. GASTROINTESTINAL: Abdomen soft, non-tender, nondistended. EXTREMITIES: No cyanosis NEUROLOGICAL: awake and alert, normal speech. Assessment/Plan Assessment 71y/o female with superior vena cava syndrome requiring thrombolytic therapy. 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 has been disease- free with a normal CA-125. Plan 1. SVC syndrome: per invasive radiology, s/p suction thrombectomy yesterday. No on heparin gttt. 2. monitor CBC 3. start magic mouthwash for sore throat. Yarelis Elmore Oct 30, 2016 11:11
[2016-10-30] MEDS: NYSTAT/DIPHENHY/LIDO MOUTHWASH (Adult) 120ML SWISH-SWAL SCH ×3 (13:00→21:00)
[2016-10-30 17:43] LABS: APTT (PATIENT) 64.6 SEC (24.3-30.1)
[2016-10-31] VITALS (11 sets, daily range): BP systolic 112–149; BP diastolic 48–70; PULSE 66–114; RESP 18–20; TEMP 98.3–98.5; O2SAT 94–97
[2016-10-31 00:26] LABS: APTT (PATIENT) 71.3 SEC (24.3-30.1)
[2016-10-31] MEDS: SODIUM CHLOR 0.9% 1000 ML INJ 1,000 ML IV SCH (03:00)
[2016-10-31 04:25] LABS: AUTOMATED NEUTROPHIL # 10.3 TH/MM3 (1.8-7.7); BASOPHIL % 0.2 % (0.0-2.0); EOSINOPHIL % 0.2 % (0.0-4.0); HEMATOCRIT 24.2 % (35.0-46.0); LYMPHOCYTE # 3.7 TH/MM3 (1.0-4.8); MEAN CELL VOLUME 71.4 FL (80.0-100.0); MEAN CORPUSCULAR HEMOGLOBIN 23.1 PG (27.0-34.0); MEAN CORPUSCULAR HGB CONC 32.4 % (32.0-36.0); MONO % 8.8 % (0.0-8.0); NEUT % 66.8 % (16.0-70.0); PLATELET COUNT 174 TH/MM3 (150-450); RED BLOOD COUNT 3.39 MIL/MM3 (4.00-5.30); RED CELL DISTRIBUTION WIDTH 15.1 % (11.6-17.2); WHITE BLOOD COUNT 15.4 TH/MM3 (4.0-11.0)
[2016-10-31 04:26] LABS: HEMO FLAGS AUTO DIFF
[2016-10-31 04:57] LABS: ALT (GPT) 24 U/L (10-53); ANION GAP 8 MEQ/L (5-15); AST (GOT) 12 U/L (15-37); BICARBONATE 27.1 MEQ/L (21.0-32.0); BLOOD UREA NITROGEN 7 MG/DL (7-18); CHLORIDE 111 MEQ/L (98-107); GLOMERULAR FILTRATION RATE 110 ML/MIN (>89); MAGNESIUM 1.6 MG/DL (1.5-2.5); POTASSIUM 3.1 MEQ/L (3.5-5.1); SODIUM (NA) 146 MEQ/L (136-145)
[2016-10-31 04:59] LABS: ALKALINE PHOSPHATASE 53 U/L (45-117); TOTAL BILIRUBIN ADULT 0.4 MG/DL (0.2-1.0)
[2016-10-31 05:14] LABS: OVALOCYTES 1+ (NORMAL); SCAN/DIFF AUTO DIFF CONFIRMED
--- NOTE | 2016-10-31 06:46 | HHI.PR ---
Subjective Remarks Pt resting comfortably. anxious to get out of bed Objective Vital Signs Date Time Temp Pulse Resp B/P Pulse Ox O2 Delivery O2 Flow Rate FiO2 10/31/16 03:00 94 Nasal Cannula 1.00 10/30/16 20:53 93 21 10/30/16 18:00 92 10/30/16 16:00 94 10/30/16 15:00 98.5 83 16 122/53 94 10/30/16 14:00 95 10/30/16 12:00 94 10/30/16 11:00 98.2 94 16 105/48 94 10/30/16 10:00 96 10/30/16 08:00 76 10/30/16 07:30 77 10/30/16 07:30 16 10/30/16 07:13 99 Nasal Cannula 1.00 I/O 10/30/16 10/30/16 10/30/16 10/31/16 10/31/16 10/31/16 07:00 15:00 23:00 07:00 15:00 23:00 Intake Total 1520 ml Output Total 600 ml Balance 920 ml Intake Oral 360 ml IV Total 1160 ml Output Urine Total 600 ml # Bowel Movements 1 Mild residual facial and BUE swelling, improved. Right neck and B groin puncture sites look good. Groin pulses 2+ Result Diagram: 10/31/1641410/31/16414 Assessment and Plan Problem List: (1) SVC (superior vena cava obstruction) Status: Acute Plan: Convert to oral anticoagulation at discretion of Hem/Onc service. Cosmo Burkett MD Oct 31, 2016 06:46
[2016-10-31] MEDS: SODIUM CHLORIDE 0.9% FLUSH 5 ML FLUSH FLUSH SCH ×2 (08:12→21:42)
[2016-10-31] MEDS: HYDROCHLOROTHIAZIDE 12.5 MG CAP PO SCH (08:12)
[2016-10-31] MEDS: LOSARTAN 50 MG TAB PO SCH (08:13)
[2016-10-31] MEDS: NYSTAT/DIPHENHY/LIDO MOUTHWASH (Adult) 120ML SWISH-SWAL SCH ×4 (08:13→21:42)
--- NOTE | 2016-10-31 09:17 | HHI.PR ---
Subjective Remarks Follow for SVC syndrome No shortness of breath, no nausea or vomiting. Facial swelling and periorbital swelling a lot better. No palpitations. No bleeding. Objective Vitals Vital Signs Date Time Temp Pulse Resp B/P Pulse Ox O2 Delivery O2 Flow Rate FiO2 10/31/16 04:00 98.5 74 18 129/50 95 10/31/16 03:00 67 10/31/16 03:00 94 Nasal Cannula 1.00 10/31/16 00:00 98.5 66 18 112/48 95 10/30/16 23:00 89 10/30/16 20:53 93 21 10/30/16 20:00 98.5 86 18 108/51 94 10/30/16 19:00 75 10/30/16 18:00 92 10/30/16 16:00 94 10/30/16 15:00 98.5 83 16 122/53 94 10/30/16 14:00 95 10/30/16 12:00 94 10/30/16 11:00 98.2 94 16 105/48 94 10/30/16 10:00 96 I/O 10/30/16 10/30/16 10/30/16 10/31/16 10/31/16 10/31/16 07:00 15:00 23:00 07:00 15:00 23:00 Intake Total 1520 ml 1540 ml Output Total 600 ml 2700 ml Balance 920 ml -1160 ml Intake Oral 360 ml 200 ml IV Total 1160 ml 1340 ml Output Urine Total 600 ml 2700 ml # Bowel Movements 1 0 Result Diagram: 10/31/16 0415 10/31/16 0415 Procedures GENERAL: This is a well-nourished, well-developed patient, in no apparent distress. SKIN: Improving neck, upper chest, and periorbital edema. HEAD: Atraumatic. Normocephalic. EYES: Pupils equal round and reactive. No injection or drainage. NECK: Trachea midline. CARDIOVASCULAR: Regular rate and rhythm without murmurs, gallops, or rubs. No JVD. RESPIRATORY: Clear to auscultation. Breath sounds equal bilaterally. No wheezes , rales, or rhonchi. GASTROINTESTINAL: Abdomen soft, non-tender, nondistended. No guarding. MUSCULOSKELETAL: Extremities without clubbing, cyanosis, or edema. NEUROLOGICAL: Awake and alert. No focal neurological deficits. Normal speech. A/P Problem List: (1) SVC (superior vena cava obstruction) ICD Code: I87.1 Status: Acute (2) Uterine cancer ICD Code: C55 Status: Acute (3) HTN (hypertension) ICD Code: I10 Status: Acute Assessment and Plan This is a 71-year-old female with history of uterine cancer admitted for facial swelling SVC syndrome, port- related SVC thrombus- SVC suction embolectomy with Angiovac device by Dr. Victoria on 10/29/16. Continue IV heparin, switched to Lovenox per hematology. Catheter directed TPA completed 10/29/16. - Clinically improving with improved swelling of neck and upper extremities. Uterine cancer-Dr. Vanegas following,-Uterine cancer stage IIIB, s/p robotic surgery, chemotherapy Hypertension - Continue Losartan, HCTZ. Hypokalemia-replaced Hypomagnesemia-replaced, recheck tomorrow. - Continue SCDs and IV heparin - Full code Discharge Planning Possible discharge tomorrow after cleared by hematology. Aleena Grijalva MD Oct 31, 2016 09:16
[2016-10-31] MEDS ORDERED: MAGNESIUM SULFATE 1 GM PREMIX 100 ML IV ONE (10:00)
--- NOTE | 2016-10-31 11:04 | PD.ONC.PN ---
Subjective Subjective Remarks Afebrile overnight. patient very excited to be able to get up and move around. No overnight events. Swelling improved. Objective Data Date Time Temp Pulse Resp B/P Pulse Ox O2 Delivery O2 Flow Rate FiO2 10/31/16 04:00 98.5 74 18 129/50 95 10/31/16 03:00 67 10/31/16 03:00 94 Nasal Cannula 1.00 10/31/16 00:00 98.5 66 18 112/48 95 10/30/16 23:00 89 10/30/16 20:53 93 21 10/30/16 20:00 98.5 86 18 108/51 94 10/30/16 19:00 75 10/30/16 18:00 92 10/30/16 16:00 94 10/30/16 15:00 98.5 83 16 122/53 94 10/30/16 14:00 95 10/30/16 12:00 94 10/31/16 10/31/16 10/31/16 07:00 15:00 23:00 Intake Total 1540 ml Output Total 2700 ml Balance -1160 ml Result Diagram: 10/31/16 0415 10/31/16 0415 Laboratory Results Laboratory Tests Test 10/30/16 10/30/16 10/31/16 10/31/16 16:55 23:45 04:15 06:35 Activated Partial 64.6 SEC 71.3 SEC 66.0 SEC Thromboplast Time White Blood Count 15.4 TH/MM3 Red Blood Count 3.39 MIL/MM3 Hemoglobin 7.8 GM/DL Hematocrit 24.2 % Mean Corpuscular Volume 71.4 FL Mean Corpuscular Hemoglobin 23.1 PG Mean Corpuscular Hemoglobin 32.4 % Concent Red Cell Distribution Width 15.1 % Platelet Count 174 TH/MM3 Mean Platelet Volume 7.7 FL Neutrophils (%) (Auto) 66.8 % Lymphocytes (%) (Auto) 24.0 % Monocytes (%) (Auto) 8.8 % Eosinophils (%) (Auto) 0.2 % Basophils (%) (Auto) 0.2 % Neutrophils # (Auto) 10.3 TH/MM3 Lymphocytes # (Auto) 3.7 TH/MM3 Monocytes # (Auto) 1.3 TH/MM3 Eosinophils # (Auto) 0.0 TH/MM3 Basophils # (Auto) 0.0 TH/MM3 CBC Comment AUTO DIFF Differential Comment AUTO DIFF CONFIRMED Ovalocytes 1+ Sodium Level 146 MEQ/L Potassium Level 3.1 MEQ/L Chloride Level 111 MEQ/L Carbon Dioxide Level 27.1 MEQ/L Anion Gap 8 MEQ/L Blood Urea Nitrogen 7 MG/DL Creatinine 0.55 MG/DL Estimat Glomerular Filtration 110 ML/MIN Rate Random Glucose 95 MG/DL Calcium Level 7.7 MG/DL Magnesium Level 1.6 MG/DL Total Bilirubin 0.4 MG/DL Aspartate Amino Transf 12 U/L (AST/SGOT) Alanine Aminotransferase 24 U/L (ALT/SGPT) Alkaline Phosphatase 53 U/L Total Protein 5.3 GM/DL Albumin 2.4 GM/DL Administered Medications Medications (Trade) Dose Ordered Sig/[place] Route PRN Reason Start Time Stop Time Status Last Admin Dose Admin IV Flush (NS Flush) 2 ml BID FLUSH 10/28/16 21:00 10/31/16 08:12 Acetaminophen (Tylenol) 650 mg Q4H PRN PO FEVER, HEADACHE, PAIN 1-4 10/28/16 14:15 10/30/16 06:28 Acetaminophen/ Hydrocodone Bitart ([place] 5-325 Mg) 1 tab Q6H PRN PO pain 5 -10 10/28/16 17:30 10/29/16 06:10 Losartan Potassium (Cozaar) 50 mg DAILY PO 10/29/16 09:00 10/31/16 08:13 Hydrochlorothiazide (Microzide) 12.5 mg DAILY PO 10/29/16 09:00 10/31/16 08:12 Multi-Ingredient Mouthwash/Gargle (Magic Mouthwash Adult Liq) 5 ml QID SWISH-SWAL 10/30/16 13:00 10/31/16 08:13 Objective Remarks GENERAL: Pleasant female, sitting up on side of bed in nad. swelling in face and UE improved. SKIN: Warm and dry. HEAD: Normocephalic. EYES: No injection or drainage. NECK: Supple, trachea midline. CARDIOVASCULAR: Regular rate and rhythm RESPIRATORY: Breath sounds equal bilaterally. No accessory muscle use. GASTROINTESTINAL: Abdomen soft, non-tender, nondistended. EXTREMITIES: No cyanosis NEUROLOGICAL: awake and alert, normal speech. moving extremities. Assessment/Plan Assessment 71y/o female with superior vena cava syndrome requiring thrombolytic therapy. 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 has been disease- free with a normal CA-125. Plan 1. SVC syndrome: improving s/p suction thrombectomy. will stop heparin drip and start Lovenox 70mg SQ BID 2. monitor CBC 3. stop IVF Attending Statement The exam, history, and the medical decision-making described in the above note were completed with the assistance of the mid-level provider. I reviewed and agree with the findings presented. I attest that I had a [id number] encounter with the patient on the same day, and personally performed and documented my assessment and findings in the medical record. Pt seen and examined, family at bedside. Pt started Lovenox in evening. Feels better, face and arms back to normal. Denies any bleeding. Discussed switch to LMWH, continue out pt therapy, anticipate switch to oral anticoagulant when stable and no recurrent SVC symptoms. Monitor anemia, suspect iron deficiency, plan iron tx as out pt. Yarelis Elmore Oct 31, 2016 11:04 Tamra Vanegas MD Oct 31, 2016 19:52
[2016-10-31] MEDS: POTASSIUM CL 40 MEQ/30 ML LIQ UDC PO SCH ×2 (11:10→11:22)
[2016-10-31] MEDS: ENOXAPARIN SODIUM 80 MG/0.8 ML SYRINGE SQ SCH ×2 (13:13→21:42)
[2016-11-01] VITALS: BP 138/63; PULSE 80; RESP 16; TEMP 97.6; O2SAT 95
[2016-11-01 04:00] VITALS: BP 124/59; PULSE 82; RESP 16; TEMP 97.7; O2SAT 96
[2016-11-01 07:01] LABS: APTT (PATIENT) 28.1 SEC (24.3-30.1)
[2016-11-01 07:28] LABS: BICARBONATE 26.7 MEQ/L (21.0-32.0); POTASSIUM 3.7 MEQ/L (3.5-5.1)
[2016-11-01 08:00] VITALS: BP 110/78; PULSE 98; RESP 18; TEMP 97; O2SAT 97
[2016-11-01] MEDS ORDERED: ENOX80P SQ (09:55)
--- NOTE | 2016-11-01 09:59 | HHI.DS ---
Discharge Summary Admission Date Oct 28, 2016 at 13:59 Discharge Date: Nov 01, 2016 Admitting Diagnosis (1) SVC (superior vena cava obstruction) ICD Code: I87.1 Diagnosis: Principal (2) Uterine cancer ICD Code: C55 Diagnosis: Secondary (3) HTN (hypertension) ICD Code: I10 Diagnosis: Secondary Procedures GENERAL: This is a well-nourished, well-developed patient, in no apparent distress. SKIN: Improving neck, upper chest, and periorbital edema. HEAD: Atraumatic. Normocephalic. EYES: Pupils equal round and reactive. No injection or drainage. NECK: Trachea midline. CARDIOVASCULAR: Regular rate and rhythm without murmurs, gallops, or rubs. No JVD. RESPIRATORY: Clear to auscultation. Breath sounds equal bilaterally. No wheezes , rales, or rhonchi. GASTROINTESTINAL: Abdomen soft, non-tender, nondistended. No guarding. MUSCULOSKELETAL: Extremities without clubbing, cyanosis, or edema. NEUROLOGICAL: Awake and alert. No focal neurological deficits. Normal speech. Brief History - From Admission Ms. Elmore is a pleasant 71-year-old female with a history of uterine cancer who was admitted from her oncologist's office due to upper extremity swelling, neck swelling, upper chest swelling. 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 Her port was removed by Dr. Burkett on 10/21/2016. Patient's SVC syndrome improved and subsequently patient was discharged on Xarelto after hematology consultation. At the time of this interview, patient denies any chest pain, shortness of breath, fever or chills. She denies any changes in her bowel or bladder habits. CBC/BMP: 10/31/16 0415 11/01/16 0635 Significant Findings Laboratory Tests Test 10/29/16 10/30/16 10/30/16 10/30/16 19:30 01:30 09:15 16:55 White Blood Count 19.4 TH/MM3 19.6 TH/MM3 (4.0-11.0) (4.0-11.0) Hemoglobin 9.6 GM/DL 8.7 GM/DL (11.6-15.3) (11.6-15.3) Hematocrit 30.3 % 27.1 % (35.0-46.0) (35.0-46.0) Mean Corpuscular Volume 71.9 FL 71.3 FL (80.0-100.0) (80.0-100.0) Mean Corpuscular Hemoglobin 22.8 PG 22.9 PG (27.0-34.0) (27.0-34.0) Mean Corpuscular Hemoglobin 31.8 % Concent (32.0-36.0) Prothrombin Time 13.1 SEC (9.8-11.6) Activated Partial 162.0 SEC 58.8 SEC 81.6 SEC 64.6 SEC Thromboplast Time (24.3-30.1) (24.3-30.1) (24.3-30.1) (24.3-30.1) Red Blood Count 3.80 MIL/MM3 (4.00-5.30) Test 10/30/16 10/31/16 10/31/16 11/01/16 23:45 04:15 06:35 06:35 Activated Partial 71.3 SEC 66.0 SEC Thromboplast Time (24.3-30.1) (24.3-30.1) White Blood Count 15.4 TH/MM3 (4.0-11.0) Red Blood Count 3.39 MIL/MM3 (4.00-5.30) Hemoglobin 7.8 GM/DL (11.6-15.3) Hematocrit 24.2 % (35.0-46.0) Mean Corpuscular Volume 71.4 FL (80.0-100.0) Mean Corpuscular Hemoglobin 23.1 PG (27.0-34.0) Monocytes (%) (Auto) 8.8 % (0.0-8.0) Neutrophils # (Auto) 10.3 TH/MM3 (1.8-7.7) Monocytes # (Auto) 1.3 TH/MM3 (0-0.9) Ovalocytes 1+ (NORMAL) Sodium Level 146 MEQ/L (136-145) Potassium Level 3.1 MEQ/L (3.5-5.1) Chloride Level 111 MEQ/L (98-107) Calcium Level 7.7 MG/DL 8.3 MG/DL (8.5-10.1) (8.5-10.1) Aspartate Amino Transf 12 U/L (15-37) (AST/SGOT) Total Protein 5.3 GM/DL (6.4-8.2) Albumin 2.4 GM/DL (3.4-5.0) Imaging Last Impressions Miscellaneous Special Procedure 10/29/16 0000 Signed Impressions: Service Date/Time: Saturday, October 29, 2016 08:57 - CONCLUSION: No significant interval change in the low SVC occlusion despite overnight thrombolytic therapy. The configuration does appear amenable to suction thrombectomy utilizing Angiovac device which is recommended at this point. Cosmo Burkett MD Guidance Fluoroscopy 10/29/16 0000 Signed Impressions: Service Date/Time: Saturday, October 29, 2016 15:38 - CONCLUSION: Partial recanalization of the superior vena cava as described in detail above. I will have the patient remain on IV heparin pending a decision regarding oral anticoagulation going forward. Should the patient have persistent or recurrent symptoms, the only remaining endovascular option would be stent placement. Cosmo Burkett MD Vena Cavagram 10/28/16 1621 Signed Impressions: Service Date/Time: Friday, October 28, 2016 17:15 - CONCLUSION: Total occlusion of the low superior vena cava was traversed and thrombolysis was initiated. We will follow the venographic appearance in the morning. Cosmo Burkett MD Central Venous Line 10/28/16 0000 Signed Impressions: Service Date/Time: Friday, October 28, 2016 17:15 - CONCLUSION: Uncomplicated line placement as above. Cosmo Burkett MD Pt update on day of discharge No overnight events, no chest pain or shortness of breath. Upper extremity, facial and periorbital swelling markedly improved. Discussed with hematologybabatunde for discharge. Hospital Course Ms. Elmore is a pleasant 71-year-old female with a history of uterine cancer who was admitted from her oncologist's office due to upper extremity swelling, neck swelling, upper chest swelling. CT scan of the chest revealed total occlusion of the lower part of superior vena cava. Patient was given thrombolytic therapy. No resolution, interventional radiology was consulted. Status post SVC suction embolectomy 10/29/16. Patient was maintained in heparin and switched to Lovenox on discharge. Patient's facial swelling and periorbital swelling markedly improved. She will continue her antihypertensives and will follow-up with oncology. She will continue Lovenox shots twice a day. Pt Condition on Discharge: Good Discharge Disposition: Discharge Home Discharge Time: > 30 minutes Discharge Instructions DIET: Follow Instructions for: Heart Healthy Diet Activities you can perform: Regular-No Restrictions Follow up Referrals: Oncology - 2 Weeks New Medications: Enoxaparin Inj (Lovenox Inj) 80 mg/0.8 ML Syr 70 MG SQ Q12H SVC syndrome #60 INJECTION Continued Medications: B-Complex Vitamins (Vitamin B Complex) 1 Tab 1 TAB PO DAILY Calcium-Vitamins D & K (Calcium + D + K) 750-500-40 Mg-Unit-Mcg Tab 1 TAB PO TID TAB Hydrocodone-Acetaminophen (Hydrocodone-Acetaminophen) 5-325 mg Tab 1 TAB PO Q6H PRN pain 5 -10 #15 TAB Losartan-Hydrochlorothiazide (Hyzaar) 50-12.5 Mg Tab 1 TAB PO DAILY Blood Pressure Management #30 Ref 0 TAB Discontinued Medications: Rivaroxaban (Xarelto) 20 Mg Tab 20 MG PO DAILY Blood Clot Prevention #30 Ref 0 TAB Aleena Grijalva MD Nov 01, 2016 09:59
[2016-11-01] MEDS: LOSARTAN 50 MG TAB PO SCH (10:33)
[2016-11-01] MEDS: HYDROCHLOROTHIAZIDE 12.5 MG CAP PO SCH (10:33)
[2016-11-01] MEDS: NYSTAT/DIPHENHY/LIDO MOUTHWASH (Adult) 120ML SWISH-SWAL SCH (10:33)
[2016-11-01] MEDS: ENOXAPARIN SODIUM 80 MG/0.8 ML SYRINGE SQ SCH (10:33)
--- NOTE | 2016-11-01 12:23 | PD.ONC.PN ---
Subjective Subjective Remarks Afebrile overnight. patient resting comfortably without complaint. She is eager to go home. Daughter at bedside. Objective Data Date Time Temp Pulse Resp B/P Pulse Ox O2 Delivery O2 Flow Rate FiO2 11/01/16 08:00 97.0 98 18 110/78 97 11/01/16 04:00 97.7 82 16 124/59 96 11/01/16 00:00 97.6 80 16 138/63 95 10/31/16 20:50 98.4 95 20 149/70 95 10/31/16 19:00 93 10/31/16 18:00 92 10/31/16 16:00 92 10/31/16 16:00 98.4 92 20 123/58 97 10/31/16 14:00 114 10/31/16 14:00 94 11/01/16 11/01/16 11/01/16 07:00 15:00 23:00 Intake Total 120 ml Balance 120 ml Result Diagram: 10/31/16 0415 11/01/16 0635 Laboratory Results Laboratory Tests Test 11/01/16 06:35 Activated Partial 28.1 SEC Thromboplast Time Sodium Level 142 MEQ/L Potassium Level 3.7 MEQ/L Chloride Level 107 MEQ/L Carbon Dioxide Level 26.7 MEQ/L Anion Gap 8 MEQ/L Blood Urea Nitrogen 11 MG/DL Creatinine 0.63 MG/DL Estimat Glomerular Filtration 94 ML/MIN Rate Random Glucose 84 MG/DL Calcium Level 8.3 MG/DL Administered Medications Medications (Trade) Dose Ordered Sig/[place] Route PRN Reason Start Time Stop Time Status Last Admin Dose Admin IV Flush (NS Flush) 2 ml BID FLUSH 10/28/16 21:00 10/31/16 21:42 Acetaminophen (Tylenol) 650 mg Q4H PRN PO FEVER, HEADACHE, PAIN 1-4 10/28/16 14:15 10/30/16 06:28 Acetaminophen/ Hydrocodone Bitart ([place] 5-325 Mg) 1 tab Q6H PRN PO pain 5 -10 10/28/16 17:30 10/29/16 06:10 Losartan Potassium (Cozaar) 50 mg DAILY PO 10/29/16 09:00 11/01/16 10:33 Hydrochlorothiazide (Microzide) 12.5 mg DAILY PO 10/29/16 09:00 11/01/16 10:33 Multi-Ingredient Mouthwash/Gargle (Magic Mouthwash Adult Liq) 5 ml QID SWISH-SWAL 10/30/16 13:00 11/01/16 10:33 Enoxaparin Sodium (Lovenox Inj) 70 mg Q12H SQ 10/31/16 10:00 11/01/16 10:33 Objective Remarks GENERAL: Pleasant female, sitting up in bed in nad. SKIN: Warm and dry. HEAD: Normocephalic. facial swelling significantly improved. EYES: No injection or drainage. NECK: Supple, trachea midline. CARDIOVASCULAR: Regular rate and rhythm RESPIRATORY: Breath sounds equal bilaterally. No accessory muscle use. GASTROINTESTINAL: Abdomen soft, non-tender, nondistended. EXTREMITIES: No cyanosis NEUROLOGICAL: awake and alert, normal speech. moving extremities. Assessment/Plan Assessment 71y/o female with superior vena cava syndrome requiring thrombolytic therapy. 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 has been disease- free with a normal CA-125. Plan 1. continue Lovenox 70mg SQ BID 2. monitor CBC 3. clear for d/c Yarelis Elmore Nov 01, 2016 12:23
== END 2016-11-01 13:06 | disposition home or self-care (01) | DRG 271 ==
LOC: HOCA 13:59 → HIME 18:40 → HCPC 10-29 15:37 → HCVR 10-29 20:25 → HOCB 10-31 23:28
PROVIDERS: ADMIT Hospitalist; ATTEND Hospitalist
PROC: B5131ZA Fluoroscopy of Right Jugular Veins using Low Osmolar Contrast, Guidance (ICD-10-PCS; 2016-10-29)
PROC: B51G1ZA Fluoroscopy of Left Pelvic (Iliac) Veins using Low Osmolar Contrast, Guidance (ICD-10-PCS; 2016-10-29)
PROC: B5191ZA Fluoroscopy of Inferior Vena Cava using Low Osmolar Contrast, Guidance (ICD-10-PCS; 2016-10-29)
PROC: B5131ZA Fluoroscopy of Right Jugular Veins using Low Osmolar Contrast, Guidance (ICD-10-PCS; principal; 2016-10-29 15:38)
PROC: 02CV3ZZ Extirpation of Matter from Superior Vena Cava, Percutaneous Approach (ICD-10-PCS; 2016-10-29 15:38)
PROC: 3E04317 Introduction of Other Thrombolytic into Central Vein, Percutaneous Approach (ICD-10-PCS; 2016-10-29 15:38)
DX: I87.1 Compression of vein (principal); J90 Pleural effusion, not elsewhere classified; I82.210 Acute embolism and thrombosis of superior vena cava; E83.42 Hypomagnesemia; I10 Essential (primary) hypertension; E87.6 Hypokalemia; Z85.42 Personal history of malignant neoplasm of other parts of uterus; D50.9 Iron deficiency anemia, unspecified; R73.9 Hyperglycemia, unspecified
CPT/HCPCS: 34421; 36000; 36005; 36010; 36013; 36430; 36556; 36800; 37187; 37212; 37213; 37799; 75825; 75827; 76937; 77001; 80048; 80053; 81001; 83735; 85025; 85027; 85384; 85610; 85730; 86850; 86900; 86901; 86920; 88304; 88305; 94002; 94150; 94664; 99152; 99153; C1725; C1757; C1760; C1769; C1887; C1894; G0269; J1644; J1650; J2250; J2370; J2997; J3010; J3475; J7030; J7040; J7120; J7613; P9016; Q9967